=== PATIENT | male | born 1965 | race African-American/Black ===

== ENCOUNTER 2017-07-28 10:19 | Inpatient (IN) | payer OTHER ==
[~2017-07-28] VITALS: Ht 177.8 cm; Wt 83.0 kg
[2017-07-28 10:39] LABS: BASO # 0.1 x10^3/uL (0.0-0.2); BASO % 1 % (0-3); EOS % 1 % (0-3); HEMATOCRIT 40.9 % (39.0-53.0); HEMOGLOBIN 13.7 g/dL (13.0-17.5); LYMPH # 1.8 x10^3/uL (1.0-4.8); LYMPH % 19 % (24-48); MEAN CORPUSCULAR HEMOGLOBIN 29 pg (25-35); MEAN CORPUSCULAR HGB CONC 33 g/dL (31-37); MEAN CORPUSCULAR VOLUME 87 fL (79-100); MONO % 5 % (0-9); NEUT % 74 % (31-73); PLATELET COUNT 197 x10^3/uL (140-400); RED BLOOD COUNT 4.69 x10^6/uL (4.30-5.70); RED CELL DISTRIBUTION WIDTH 13.7 % (11.5-14.5); WHITE BLOOD COUNT 9.5 x10^3/uL (4.0-11.0)
[2017-07-28 10:50] LABS: ANION GAP 9 (6-14); BLOOD UREA NITROGEN 13 mg/dL (8-26); BUN/CREATININE RATIO 13 (6-20); CALCIUM 9.3 mg/dL (8.5-10.1); CARBON DIOXIDE 28 mmol/L (21-32); CHLORIDE 102 mmol/L (98-107); GFR 78.8; GLUCOSE 328 mg/dL (70-99); POTASSIUM 3.8 mmol/L (3.5-5.1); SODIUM 139 mmol/L (136-145)
--- NOTE | 2017-07-28 10:54 | RAD ---
Head CT without contrast History:Possible seizure, altered mental status Technique: Noncontrast CT imaging was acquired of the head. [facility] Compliance Statement: One or more of the following individualized dose reduction techniques were utilized for this examination: 1. Automated exposure control 2. Adjustment of the mA and/or kV according to patient size 3. Use of iterative reconstruction technique Comparison: None Findings: The ventricles, sulci, and cisterns are within normal limits in size and configuration. There is no significant mass-effect, midline shift, or abnormal extra-axial fluid collection. There is no evidence of acute parenchymal or extraaxial hemorrhage. The visualized paranasal sinuses and mastoid air cells are aerated. No significant osseous abnormality is identified. Impression: There is no evidence of an acute intracranial abnormality.
[2017-07-28 10:56] LABS: ALBUMIN 3.7 g/dL (3.4-5.0); ALBUMIN/GLOBULIN RATIO 0.9 (1.0-1.7); ALK PHOS 118 U/L (46-116); ALT (SGPT) 22 U/L (16-63); AST (SGOT) 16 U/L (15-37); TOTAL BILIRUBIN 0.2 mg/dL (0.2-1.0); TOTAL PROTEIN 7.8 g/dL (6.4-8.2)
[2017-07-28] MEDS ORDERED: LISI2.5T PO (10:58)
[2017-07-28] MEDS ORDERED: METF500T4 PO (10:58)
[2017-07-28] MEDS ORDERED: PHEN100C PO ×2 (10:58→14:46)
[2017-07-28] MEDS ORDERED: HYDR25CA PO (10:58)
[2017-07-28 11:16] LABS: BARBITURATES NEG (NEG); BENZODIAZEPINES NEG (NEG); CANNABINOIDS NEG (NEG); COCAINE NEG (NEG); METHADONE NEG (NEG); OPIATES NEG (NEG); PHENCYCLIDINE NEG (NEG)
[2017-07-28] MEDS ORDERED: FOSPHENYTOIN 1,000 MG in IV NORMAL SALINE 50ML 50 ML IV ONE (11:30)
[2017-07-28] MEDS ORDERED: IV NORMAL SALINE 1000ML BAG 1,000 ML IV ONE (11:30)
--- NOTE | 2017-07-28 13:13 | PHYS DOC ---
Past Medical History Past Medical History: Diabetes-Type II, Hypertension, Seizure, Stroke Past Surgical History: Other Additional Past Surgical Histo: unknown Alcohol Use: None Drug Use: None Social History Narrative: unknown Adult General Chief Complaint Chief Complaint: ALTERED MENTAL STATUS HPI HPI Patient is a 51 year old male brought by EMS from [facility]. The patient reportedly had a possible seizure, had altered mental status, which was noted this morning at about 9:00. Patient reportedly does have a history of seizures. His medication list includes Dilantin. The guards accompanying the patient do not know him. Nursing report was called but this is the extent of the information we had. EMS report that the patient's blood glucose was 301 prior to transport. EMS report that the patient had been nonverbal but making some noises in route. They weren't sure if he was having a seizure so they did not administer any medications. On arrival, patient is nonverbal. He was not able to contribute to a history. Med list reviewed and does include Dilantin, no other seizure medications. Review of Systems Review of Systems Patient is altered and nonverbal, unable to give review of systems Current Medications Current Medications Current Medications Medications (Trade) Dose Ordered Sig/Lainey Start Time Stop Time Status Last Admin Dose Admin Fosphenytoin Sodium 1000 mg/ Sodium Chloride 70 ml @ 280 mls/hr 1X ONCE 07/28/17 11:30 07/28/17 11:44 DC 07/28/17 11:59 280 MLS/HR Lorazepam (Ativan) 2 mg PRN Q4HRS PRN 07/28/17 10:30 Sodium Chloride 1,000 ml @ 1,000 mls/hr 1X ONCE 07/28/17 11:30 07/28/17 12:29 DC 07/28/17 11:55 1,000 MLS/HR Allergies Allergies Allergies Coded Allergies Type Severity Reaction Last Updated Verified Penicillins Allergy Unknown Unknown 07/28/17 Yes Physical Exam Physical Exam Constitutional: Well developed, well nourished, eyes are closed, head is turned to the right, he has some mostly tonic but slight tonic-clonic movements of the left upper extremity. He is breathing and maintaining his airway with sat in the 90s. He is not moving his lower extremities. HENT: Normocephalic, atraumatic, bilateral external ears normal, oropharynx moist, nose normal. [] Eyes: PERRLA, EOMI, conjunctiva normal, no discharge. His eyes are closed but can be opened with gentle traction. Neck: Normal range of motion, no stridor. [] Cardiovascular:Heart rate regular rhythm, no murmur [] Lungs & Thorax: Bilateral breath sounds clear to auscultation [] Abdomen: Bowel sounds normal, soft, no tenderness, no masses, no pulsatile masses. [] Skin: Warm, dry, no erythema, no rash. [] Extremities: No tenderness, no cyanosis, no clubbing, ROM intact, no edema. [] Neurologic: As described. He does have tone of the right arm, left arm is mostly tonic, no muscle tone or movement of the lower extremities. Current Patient Data Vital Signs Vital Signs Date Time Temp Pulse Resp B/P (MAP) Pulse Ox O2 Delivery O2 Flow Rate FiO2 07/28/17 12:53 82 98 07/28/17 10:19 100.0 22 178/94 (122) Room Air 100.0 Lab Values Laboratory Tests Test 07/28/17 10:30 07/28/17 10:32 07/28/17 10:51 White Blood Count 9.5 x10^3/uL (4.0-11.0) Red Blood Count 4.69 x10^6/uL (4.30-5.70) Hemoglobin 13.7 g/dL (13.0-17.5) Hematocrit 40.9 % (39.0-53.0) Mean Corpuscular Volume 87 fL (79-100) Mean Corpuscular Hemoglobin 29 pg (25-35) Mean Corpuscular Hemoglobin Concent 33 g/dL (31-37) Red Cell Distribution Width 13.7 % (11.5-14.5) Platelet Count 197 x10^3/uL (140-400) Neutrophils (%) (Auto) 74 % (31-73) H Lymphocytes (%) (Auto) 19 % (24-48) L Monocytes (%) (Auto) 5 % (0-9) Eosinophils (%) (Auto) 1 % (0-3) Basophils (%) (Auto) 1 % (0-3) Neutrophils # (Auto) 7.0 x10^3uL (1.8-7.7) Lymphocytes # (Auto) 1.8 x10^3/uL (1.0-4.8) Monocytes # (Auto) 0.5 x10^3/uL (0.0-1.1) Eosinophils # (Auto) 0.1 x10^3/uL (0.0-0.7) Basophils # (Auto) 0.1 x10^3/uL (0.0-0.2) Sodium Level 139 mmol/L (136-145) Potassium Level 3.8 mmol/L (3.5-5.1) Chloride Level 102 mmol/L (98-107) Carbon Dioxide Level 28 mmol/L (21-32) Anion Gap 9 (6-14) Blood Urea Nitrogen 13 mg/dL (8-26) Creatinine 1.0 mg/dL (0.7-1.3) Estimated GFR (Cockcroft-Gault) 78.8 BUN/Creatinine Ratio 13 (6-20) Glucose Level 328 mg/dL (70-99) H Lactic Acid Level 2.1 mmol/L (0.4-2.0) H Calcium Level 9.3 mg/dL (8.5-10.1) Total Bilirubin 0.2 mg/dL (0.2-1.0) Aspartate Amino Transferase (AST) 16 U/L (15-37) Alanine Aminotransferase (ALT) 22 U/L (16-63) Alkaline Phosphatase 118 U/L (46-116) H Total Protein 7.8 g/dL (6.4-8.2) Albumin 3.7 g/dL (3.4-5.0) Albumin/Globulin Ratio 0.9 (1.0-1.7) L Triglycerides Level 173 mg/dL (0-150) H Cholesterol Level 157 mg/dL (0-200) LDL Cholesterol, Calculated 76 mg/dL (0-100) VLDL Cholesterol, Calculated 35 mg/dL (0-40) Non-HDL Cholesterol Calculated 111 mg/dL (0-129) HDL Cholesterol 46 mg/dL (40-60) Cholesterol/HDL Ratio 3.4 Phenytoin (Dilantin) Level 1.3 mcg/mL (10.0-20.0) L Phenytoin Last Dose Date 07/28/17 Phenytoin Last Dose Time 0800 Glucose (Fingerstick) 293 mg/dL (70-99) H Urine Opiates Screen Neg (NEG) Urine Methadone Screen Neg (NEG) Urine Barbiturates Neg (NEG) Urine Phencyclidine Screen Neg (NEG) Urine Amphetamine/Methamphetamine Neg (NEG) Urine Benzodiazepines Screen Neg (NEG) Urine Cocaine Screen Neg (NEG) Urine Cannabinoids Screen Neg (NEG) Urine Ethyl Alcohol Neg (NEG) Laboratory Tests 07/28/17 10:30 Laboratory Tests 07/28/17 10:30 EKG EKG [] Radiology/Procedures Radiology/Procedures CT scan of the head read by the radiologist. No acute intracranial abnormality. No other abnormality noted.[] Course & Med Decision Making Course & Med Decision Making Pertinent Labs and Imaging studies reviewed. (See chart for details) 51-year-old male presents by EMS with essentially no history, unresponsive and possibly having seizure activity although maintaining his airway with normal oxygenation. I assessed him on arrival and I felt that his left upper extremity movement and some facial grimacing did appear to be likely seizure activity. The patient was given Ativan 2 mg IV. He had rapid resolution of his symptoms. Within 5-10 minutes, he did start to come around. His speech does exhibit some abnormality, possibly some expressive aphasia, unclear whether this is new or old, and it did seem to improve over a short time. Patient was able to tell me that he does have a history of seizures. As I did a neuro exam, the patient told me that his legs do not move and he is in a wheelchair because of that. He stated his legs both do not move due to a stroke. After patient cleared up some , he had no complaints. Labs relatively unremarkable although lactic is mildly elevated. CT scan unremarkable. Dilantin level subtherapeutic. I elected to give the patient a IV Dilantin load. Pt had another episode of what appeared to be seizure activity. [facility] guards called ED nursing staff into the room. I believe this occurred shortly after ED nursing staff was discussing with guards whether patient would be hospitalized or released back to the long-term. I went into the room to evaluate the patient. The patient's eyes were closed, he was having grimacing facial movements, and having rapid shaking-type tonic-clonic type movements of both upper extremities without movements of lower extremities. He was breathing without difficulty and pulse ox remained 100% during this episode. He was having some noisy breathing but was breathing throughout the entire event. I did order a second dose of IV Ativan but he for the ED RN was able to get a pulled up, the movements stopped. Within about 30 seconds, as I called the patient's name, he opened his eyes and seemed to be relatively alert. I did not note any postictal state. I don't believe that this particular event exhibited was a generalized seizure, but unclear whether it definitely was or was not. Patient will be hospitalized for recurrent seizure activity, altered mental status. We are unclear what the patient's baseline mental status and neurologic exam is. Also noted that his blood glucose is elevated. He does have a history of diabetes. This was treated in the emergency department with an IV bolus of normal saline. Although the patient status was initially called from [facility] and EMS as "possible stroke," I did not believe the patient exhibited a clearcut stroke pattern. On arrival, the patient's mental status alteration was significant. He did not have left sided hemiparesis, instead had increased tone in the form of tonic/clonic type activity. Patient appeared to be having seizure activity rather than stroke syndrome. Patient had rapid improvement after treatment of seizure type activity. I do not have a baseline for the patient. When he woke up he told me he has a history of bilateral legs not working which is not consistent with a previous stroke or current stroke. I did not feel that the patient exhibited stroke symptomatology and did not feel that his presentation was likely a stroke and therefore consideration was not given to TPA after taking all this into account. I discussed the patient with Dr. [facility]. He will admit the patient. I wrote bridge orders. The patient remained stable and free of any further seizure or seizure-like activity in the emergency department. Critical care time 45 minutes including initial evaluation of the patient on arrival, reevaluation of the patient, treatment of possible seizure or seizure- like activity, ordering IV seizure medications, evaluation of labs, CT scan, discussion of patient with hospital specialist, documentation, writing bridge orders. [] Dragon Disclaimer Dragon Disclaimer This electronic medical record was generated, in whole or in part, using a voice recognition dictation system. Departure Departure Impression: Primary Impression: Seizure Additional Impressions: Seizure-like activity Altered mental status Disposition: 09 ADMITTED INPATIENT Admitting Physician: Alejandrina Coley Condition: STABLE Referrals: NO PCP (PCP) Problem Qualifiers LUIS LOPEZ MD Jul 28, 2017 13:13
--- NOTE | 2017-07-28 14:09 | EKG ---
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
--- NOTE | 2017-07-28 14:26 | HP ---
ADMIT DATE: 07/28/2017 CHIEF COMPLAINT: Seizure. HISTORY OF PRESENT ILLNESS: The patient is a pleasant 51-year-old male with known seizure disorder. He has also had a previous stroke, basically presents with a seizure activity. I have discussed the case with ER physician. We have loaded with 1 gram of IV fosphenytoin. We are going to admit the patient and consult Neurology. PAST MEDICAL HISTORY: Previous seizures, previous stroke with left-sided weakness. ALLERGIES: None. FAMILY HISTORY: Diabetes. SOCIAL HISTORY: Does not drink, smoke or take drugs MEDICATIONS: Reviewed. REVIEW OF SYSTEMS: Unobtainable, the patient is seizing. PHYSICAL EXAMINATION: VITAL SIGNS: Temperature afebrile, pulse 98, respirations 18, blood pressure 144/60. GENERAL: He is sleeping. He keeps having twitching in his left hand. HEART: Normal S1, S2. LUNGS: Clear. ABDOMEN: Soft. EXTREMITIES: No edema. ENDOCRINE: No thyromegaly. LYMPHATICS: No cervical nodes. HEMATOPOIETIC: No bruising. ASSESSMENT AND PLAN: Seizure, acute on chronic seizures. The patient has been admitted. We are consulting Neurology. We loaded with IV fosphenytoin, p.r.n. benzos for breakthrough seizures. Continue other home medicines. PROGNOSIS: Guarded. LILIA RICCI DO DR: TYRELL/jackelyn JOB#: [id number] / [id number]
[2017-07-28] MEDS ORDERED: RISP0.5T3 PO (14:46)
[2017-07-28] MEDS ORDERED: HYDR50CA PO ×2 (14:46)
[2017-07-28] MEDS ORDERED: INSU100V5 IJ (14:46)
[2017-07-28] MEDS ORDERED: METF-620 PO (14:46)
[2017-07-28] MEDS ORDERED: LISI-334 PO (14:46)
[2017-07-28] MEDS ORDERED: NPH,100V5 SQ (14:56)
[2017-07-28 15:00] VITALS: BP 160/94
[2017-07-28] MEDS: ASPIRIN 325 MG TABLET PO SCH (15:50)
--- NOTE | 2017-07-28 15:51 | PDOC2 ---
CONSULT Date of Consult Date of Consult DATE: 07/28/17 TIME: 15:46 Reason for Consult Reason for Consult: seizures. Identification/Chief Complaint Chief Complaint seizures. History of Present Illness Reason for Visit: This patient is 51-year-old man who has past medical history of stroke with left -sided weakness, history of seizures. Patient has been maintained on Dilantin. Patient woke up this morning he was having some weakness, had a episode of seizure like activity. He uses wheelchair as ambulation information. Patient to have subtherapeutic Dilantin level patient was loaded with loading dose also. We will continue Dilantin at home dose. He had a CT scan done on the brain which did not show any evidence of acute intracranial abnormality that is no acute hemorrhage. History of stroke with left-sided weakness. History of seizures on Dilantin. We will get MRI brain to rule out any acute process. Family History Family History unk Current Problem List Problem List Problems Medical Problems: (1) Altered mental status Status: Acute (2) Seizure Status: Acute (3) Seizure-like activity Status: Acute Current Medications Current Medications Current Medications Lorazepam (Ativan) 2 mg 1X ONCE IV Last administered on 07/28/17 10:32; Start 07/28/17 at 10:30; Stop 07/28/17 at 10:37; Status DC Lorazepam (Ativan) 2 mg PRN Q4HRS PRN IV ANXIETY / AGITATION; Start 07/28/17 at 10:30 Sodium Chloride 1,000 ml @ 1,000 mls/hr 1X ONCE IV Last administered on 07/28 11:55; Start 07/28/17 at 11:30; Stop 07/28/17 at 12:29; Status DC Fosphenytoin Sodium 1000 mg/ Sodium Chloride 70 ml @ 280 mls/hr 1X ONCE IV Last administered on 07/28/17 11:59; Start 07/28/17 at 11:30; Stop 07/28/17 at 11:44; Status DC Aspirin (Domonique Aspirin) 325 mg DAILYWBKFT PO ; Start 07/28/17 at 16:00 Atorvastatin Calcium (Lipitor) 20 mg QHS PO ; Start 07/28/17 at 21:00 Active Scripts Active Reported Novolin N (Nph, Human Insulin Isophane) 100 Unit/1 Ml Vial 1 Unit SQ Risperidone 0.5 Mg Tablet 1 Tab PO QHS Metformin Hcl 1,000 Mg Tablet 1,000 Mg PO BIDWMEALS Dilantin (Phenytoin Sodium Extended) 100 Mg Capsule 100 Mg PO TID Vistaril (Hydroxyzine Pamoate) 50 Mg Capsule 1 Cap PO DAILY Humulin R (Insulin Regular, Human) 100 Unit/1 Ml Vial 100 Unit IJ Vistaril (Hydroxyzine Pamoate) 50 Mg Capsule 1 Cap PO TID Lisinopril 20 Mg Tablet 1 Tab PO DAILY Allergies Allergies: Coded Allergies: Penicillins (Verified Allergy, Unknown, Unknown, 07/28/17) Physical Exam Physical Exam REVIEW OF SYSTEMS: Limited Otherwise, not [id number] review of systems. PHYSICAL EXAMINATION: General appearance is no acute distress. HEENT: Normocephalic and nontraumatic. Eyes, nose, ears, and throat are unremarkable. Neck is supple. No lymphadenopathy. No crepitus. Cardiovascular: S1, S2, regular rate and rhythm. Pulmonary: Clear to auscultation bilaterally. Abdomen: Bowel sounds are positive. Abdomen is soft, nontender, and nondistended. NEUROLOGICAL EXAMINATION: Alert sleepy able to follow some simple commands PERRL. EOMI. CN: no focal findings.+ Facial asy Muscle tone: within normal. Muscle strength: able to move all ext more on right than left DTR: 1+ Plantar reflex: Flexor response bilaterally Gait: not examined in bed. Sensory exam: not able. not able cerebellar signs Vitals VITALS Vital Signs Date Time Temp Pulse Resp B/P (MAP) Pulse Ox O2 Delivery O2 Flow Rate FiO2 07/28/17 13:55 78 99 07/28/17 10:19 100.0 22 178/94 (122) Room Air 100.0 Labs Labs Laboratory Tests Test 07/28/17 10:30 07/28/17 10:32 07/28/17 10:51 07/28/17 15:04 White Blood Count 9.5 x10^3/uL (4.0-11.0) Red Blood Count 4.69 x10^6/uL (4.30-5.70) Hemoglobin 13.7 g/dL (13.0-17.5) Hematocrit 40.9 % (39.0-53.0) Mean Corpuscular Volume 87 fL (79-100) Mean Corpuscular Hemoglobin 29 pg (25-35) Mean Corpuscular Hemoglobin Concent 33 g/dL (31-37) Red Cell Distribution Width 13.7 % (11.5-14.5) Platelet Count 197 x10^3/uL (140-400) Neutrophils (%) (Auto) 74 % (31-73) Lymphocytes (%) (Auto) 19 % (24-48) Monocytes (%) (Auto) 5 % (0-9) Eosinophils (%) (Auto) 1 % (0-3) Basophils (%) (Auto) 1 % (0-3) Neutrophils # (Auto) 7.0 x10^3uL (1.8-7.7) Lymphocytes # (Auto) 1.8 x10^3/uL (1.0-4.8) Monocytes # (Auto) 0.5 x10^3/uL (0.0-1.1) Eosinophils # (Auto) 0.1 x10^3/uL (0.0-0.7) Basophils # (Auto) 0.1 x10^3/uL (0.0-0.2) Sodium Level 139 mmol/L (136-145) Potassium Level 3.8 mmol/L (3.5-5.1) Chloride Level 102 mmol/L (98-107) Carbon Dioxide Level 28 mmol/L (21-32) Anion Gap 9 (6-14) Blood Urea Nitrogen 13 mg/dL (8-26) Creatinine 1.0 mg/dL (0.7-1.3) Estimated GFR (Cockcroft-Gault) 78.8 BUN/Creatinine Ratio 13 (6-20) Glucose Level 328 mg/dL (70-99) Lactic Acid Level 2.1 mmol/L (0.4-2.0) Calcium Level 9.3 mg/dL (8.5-10.1) Total Bilirubin 0.2 mg/dL (0.2-1.0) Aspartate Amino Transf (AST/SGOT) 16 U/L (15-37) Alanine Aminotransferase (ALT/SGPT) 22 U/L (16-63) Alkaline Phosphatase 118 U/L (46-116) Total Protein 7.8 g/dL (6.4-8.2) Albumin 3.7 g/dL (3.4-5.0) Albumin/Globulin Ratio 0.9 (1.0-1.7) Phenytoin (Dilantin) Level 1.3 mcg/mL (10.0-20.0) Phenytoin Last Dose Date 07/28/17 Phenytoin Last Dose Time 0800 Glucose (Fingerstick) 293 mg/dL (70-99) 226 mg/dL (70-99) Urine Opiates Screen Neg (NEG) Urine Methadone Screen Neg (NEG) Urine Barbiturates Neg (NEG) Urine Phencyclidine Screen Neg (NEG) Urine Amphetamine/Methamphetamine Neg (NEG) Urine Benzodiazepines Screen Neg (NEG) Urine Cocaine Screen Neg (NEG) Urine Cannabinoids Screen Neg (NEG) Urine Ethyl Alcohol Neg (NEG) Laboratory Tests Test 07/28/17 10:30 07/28/17 10:32 07/28/17 10:51 07/28/17 15:04 White Blood Count 9.5 x10^3/uL (4.0-11.0) Red Blood Count 4.69 x10^6/uL (4.30-5.70) Hemoglobin 13.7 g/dL (13.0-17.5) Hematocrit 40.9 % (39.0-53.0) Mean Corpuscular Volume 87 fL (79-100) Mean Corpuscular Hemoglobin 29 pg (25-35) Mean Corpuscular Hemoglobin Concent 33 g/dL (31-37) Red Cell Distribution Width 13.7 % (11.5-14.5) Platelet Count 197 x10^3/uL (140-400) Neutrophils (%) (Auto) 74 % (31-73) Lymphocytes (%) (Auto) 19 % (24-48) Monocytes (%) (Auto) 5 % (0-9) Eosinophils (%) (Auto) 1 % (0-3) Basophils (%) (Auto) 1 % (0-3) Neutrophils # (Auto) 7.0 x10^3uL (1.8-7.7) Lymphocytes # (Auto) 1.8 x10^3/uL (1.0-4.8) Monocytes # (Auto) 0.5 x10^3/uL (0.0-1.1) Eosinophils # (Auto) 0.1 x10^3/uL (0.0-0.7) Basophils # (Auto) 0.1 x10^3/uL (0.0-0.2) Sodium Level 139 mmol/L (136-145) Potassium Level 3.8 mmol/L (3.5-5.1) Chloride Level 102 mmol/L (98-107) Carbon Dioxide Level 28 mmol/L (21-32) Anion Gap 9 (6-14) Blood Urea Nitrogen 13 mg/dL (8-26) Creatinine 1.0 mg/dL (0.7-1.3) Estimated GFR (Cockcroft-Gault) 78.8 BUN/Creatinine Ratio 13 (6-20) Glucose Level 328 mg/dL (70-99) Lactic Acid Level 2.1 mmol/L (0.4-2.0) Calcium Level 9.3 mg/dL (8.5-10.1) Total Bilirubin 0.2 mg/dL (0.2-1.0) Aspartate Amino Transf (AST/SGOT) 16 U/L (15-37) Alanine Aminotransferase (ALT/SGPT) 22 U/L (16-63) Alkaline Phosphatase 118 U/L (46-116) Total Protein 7.8 g/dL (6.4-8.2) Albumin 3.7 g/dL (3.4-5.0) Albumin/Globulin Ratio 0.9 (1.0-1.7) Phenytoin (Dilantin) Level 1.3 mcg/mL (10.0-20.0) Phenytoin Last Dose Date 07/28/17 Phenytoin Last Dose Time 0800 Glucose (Fingerstick) 293 mg/dL (70-99) 226 mg/dL (70-99) Urine Opiates Screen Neg (NEG) Urine Methadone Screen Neg (NEG) Urine Barbiturates Neg (NEG) Urine Phencyclidine Screen Neg (NEG) Urine Amphetamine/Methamphetamine Neg (NEG) Urine Benzodiazepines Screen Neg (NEG) Urine Cocaine Screen Neg (NEG) Urine Cannabinoids Screen Neg (NEG) Urine Ethyl Alcohol Neg (NEG) Assessment/Plan Assessment/Plan This patient is 51-year-old man who has past medical history of stroke with left -sided weakness, history of seizures. Patient has been maintained on Dilantin. Patient woke up this morning he was having some weakness, had a episode of seizure like activity. He uses wheelchair as ambulation information. Patient to have subtherapeutic Dilantin level patient was loaded with loading dose also. We will continue Dilantin at home dose. He had a CT scan done on the brain which did not show any evidence of acute intracranial abnormality that is no acute hemorrhage. History of stroke with left-sided weakness. History of seizures on Dilantin. We will get MRI brain to rule out any acute process. He had a CT scan done on the brain which did not show any evidence of acute intracranial abnormality there was no acute hemorrhage. We'll start patient on aspirin for stroke prevention. Lipid profile, statin PTOT speech evaluation Check K Doppler. Check 2-D echo. Check for any infectious or metabolic etiology. Seizure precautions. Continue medical management. MARYJO MOYA MD Jul 28, 2017 15:51
[2017-07-28 15:58] LABS: CHOLESTEROL/HDL RATIO 3.4
--- NOTE | 2017-07-28 16:33 | RAD ---
Carotid Doppler ultrasound History: Seizures versus CVA. Multiple grayscale and color sonographic images and spectral analysis waveform images were acquired of the carotid and vertebral arteries. Findings: Stenosis calculations for carotid ultrasound studies are derived from validated velocity criteria which are known to correlate with the NASCET methodology. Right: Distal CCA PSV 69 cm/sec EDV 18 cm/sec Maximum ICA PSV 59 cm/sec EDV 16 cm/sec ECA PSV 80 cm/sec Vertebral PSV 40 cm/sec ICA/CCA ratio less than 1 Left: Distal CCA PSV 80 cm/sec EDV 18 cm/sec Maximal ICA PSV 58 cm/sec EDV 11 cm/sec ECA PSV 76 cm/sec Vertebral PSV 35 cm/sec ICA/CCA ratio less than 1 There is antegrade flow in the bilateral vertebral arteries. There is very minimal intimal thickening and plaque, no significant stenosis demonstrated on grayscale or color images.. Impression: 1. There is no evidence of a hemodynamically significant stenosis..
[2017-07-28] MEDS ORDERED: GADOBUTROL 7.5 MMOL/7.5 ML VIAL IV ONE (16:45)
[2017-07-28] MEDS ORDERED: DEXTROSE 50% 25 GM / 50ML DISP.SYRIN. IV PRN (17:00)
[2017-07-28] MEDS ORDERED: INSULIN ASPART 300 UNITS/3 ML INSULN.PEN SQ SCH (17:00)
--- NOTE | 2017-07-28 17:39 | RAD ---
EXAM: Brain MRI with and without contrast. HISTORY: Seizures. TECHNIQUE: Multiplanar, multisequence magnetic resonance imaging of the brain was performed prior to and following the administration of 8 cc Gadavist intravenous contrast. COMPARISON: Head CT obtained on the same date. FINDINGS: The exam is limited due to motion. There is no restricted diffusion to suggest acute or subacute infarction. There is no mass effect or midline shift. There is no hydrocephalus. There are scattered focal areas of signal change within the cerebral white matter, a nonspecific finding likely due to chronic small vessel disease. The orbits, paranasal sinuses and mastoid air cells are unremarkable. There are normal flow voids within the cerebral vessels. No suspicious enhancing lesion is seen. There is no susceptibility effect to suggest hemorrhage. IMPRESSION: 1. No acute intracranial finding. 2. Scattered focal areas of signal change within the cerebral white matter, a nonspecific finding likely due to chronic small vessel disease. Electronically signed by: Valerie Macias MD (07/28/2017 5:35 PM) [id number]
[2017-07-28 19:00] VITALS: BP 157/101
[2017-07-28 20:37] VITALS: BP 156/94
[2017-07-28] MEDS: risperiDONE 0.25 MG TABLET. PO SCH (20:38)
[2017-07-28] MEDS: PHENYTOIN SODIUM EXTENDED 100 MG CAPSULE PO SCH (20:38)
[2017-07-28] MEDS: ATORVASTATIN CALCIUM 20 MG TABLET PO SCH (20:38)
[2017-07-28] MEDS: oxyCODONE/APAP 5/325 1 TAB TABLET PO PRN (21:22)
[2017-07-28] MEDS: amLODIPine BESYLATE 5 MG TABLET PO SCH (21:22)
[2017-07-28 23:00] VITALS: BP 155/88
[2017-07-28] MEDS: INSULIN ASPART 300 UNITS/3 ML INSULN.PEN SQ SCH (23:07)
[2017-07-29 03:26] VITALS: BP 134/79
[2017-07-29 07:00] VITALS: BP 139/84
[2017-07-29] MEDS: INSULIN ASPART 300 UNITS/3 ML INSULN.PEN SQ SCH ×4 (07:30→16:49)
[2017-07-29] MEDS ORDERED: DEXTROSE 50% 25 GM / 50ML DISP.SYRIN. IV PRN (08:00)
[2017-07-29] MEDS ORDERED: ACETAMINOPHEN 500 MG TABLET PO PRN (08:00)
[2017-07-29] MEDS ORDERED: ONDANSETRON PF 4 MG/2 ML VIAL. IV PRN (08:00)
[2017-07-29] MEDS: ASPIRIN 325 MG TABLET PO SCH (08:07)
[2017-07-29] MEDS: amLODIPine BESYLATE 5 MG TABLET PO SCH (09:35)
[2017-07-29] MEDS: LISINOPRIL 20 MG TABLET PO SCH (09:35)
[2017-07-29] MEDS: hydrOXYzine PAMOATE 25 MG CAPSULE PO SCH (09:35)
[2017-07-29] MEDS: PHENYTOIN SODIUM EXTENDED 100 MG CAPSULE PO SCH (09:36)
--- NOTE | 2017-07-29 09:55 | PDOC ---
PROGRESS NOTES Assessment Problems Medical Problems: (1) Altered mental status Status: Acute (2) Seizure Status: Acute (3) Seizure-like activity Status: Acute Epilepsy Sub therapeutic phenytoin level History of stroke with left hemiparesis Plan Change phenytoin to 300 mg HS rather than TID Check level tomorrow, and I also suggest rechecking at senior living a week or 2 from now. Discharged tomorrow if he remains seizure-free overnight. Hold off on repeating his EEG or adding a 2nd anticonvulsant, unless he continues to have breakthrough seizures with therapeutic level. Subjective He thinks he had a seizure about 3 AM the day. Objective Vital Signs Date Time Temp Pulse Resp B/P (MAP) Pulse Ox O2 Delivery O2 Flow Rate FiO2 07/29/17 09:35 78 139/84 07/29/17 07:00 98.2 20 98 Room Air 98.2 Intake and Output 07/29/17 07:00 Intake Total 1470 ml Output Total 1000 ml Balance 470 ml Intake Oral 400 ml IV Total 1070 ml Output Urine Total 1000 ml # Voids 1 PHYSICAL EXAM Alert. Oriented to time, place and person. PERRL. EOMI. CN: Mild left central facial weakness, otherwise normal cranial nerves. Muscle tone: normal. Muscle strength: 4/5 left hemiparesis DTR: 2+ Plantar reflex: flexor Gait: not examined in bed. Sensory exam: no abnormal findings. No cerebellar signs elicited. Review of Relevant I have reviewed the following items marly (where applicable) has been applied. Labs Laboratory Tests Test 07/28/17 10:30 07/28/17 10:32 07/28/17 10:51 07/28/17 15:04 White Blood Count 9.5 x10^3/uL (4.0-11.0) Red Blood Count 4.69 x10^6/uL (4.30-5.70) Hemoglobin 13.7 g/dL (13.0-17.5) Hematocrit 40.9 % (39.0-53.0) Mean Corpuscular Volume 87 fL (79-100) Mean Corpuscular Hemoglobin 29 pg (25-35) Mean Corpuscular Hemoglobin Concent 33 g/dL (31-37) Red Cell Distribution Width 13.7 % (11.5-14.5) Platelet Count 197 x10^3/uL (140-400) Neutrophils (%) (Auto) 74 % (31-73) Lymphocytes (%) (Auto) 19 % (24-48) Monocytes (%) (Auto) 5 % (0-9) Eosinophils (%) (Auto) 1 % (0-3) Basophils (%) (Auto) 1 % (0-3) Neutrophils # (Auto) 7.0 x10^3uL (1.8-7.7) Lymphocytes # (Auto) 1.8 x10^3/uL (1.0-4.8) Monocytes # (Auto) 0.5 x10^3/uL (0.0-1.1) Eosinophils # (Auto) 0.1 x10^3/uL (0.0-0.7) Basophils # (Auto) 0.1 x10^3/uL (0.0-0.2) Sodium Level 139 mmol/L (136-145) Potassium Level 3.8 mmol/L (3.5-5.1) Chloride Level 102 mmol/L (98-107) Carbon Dioxide Level 28 mmol/L (21-32) Anion Gap 9 (6-14) Blood Urea Nitrogen 13 mg/dL (8-26) Creatinine 1.0 mg/dL (0.7-1.3) Estimated GFR (Cockcroft-Gault) 78.8 BUN/Creatinine Ratio 13 (6-20) Glucose Level 328 mg/dL (70-99) Lactic Acid Level 2.1 mmol/L (0.4-2.0) Calcium Level 9.3 mg/dL (8.5-10.1) Total Bilirubin 0.2 mg/dL (0.2-1.0) Aspartate Amino Transf (AST/SGOT) 16 U/L (15-37) Alanine Aminotransferase (ALT/SGPT) 22 U/L (16-63) Alkaline Phosphatase 118 U/L (46-116) Total Protein 7.8 g/dL (6.4-8.2) Albumin 3.7 g/dL (3.4-5.0) Albumin/Globulin Ratio 0.9 (1.0-1.7) Triglycerides Level 173 mg/dL (0-150) Cholesterol Level 157 mg/dL (0-200) LDL Cholesterol, Calculated 76 mg/dL (0-100) VLDL Cholesterol, Calculated 35 mg/dL (0-40) Non-HDL Cholesterol Calculated 111 mg/dL (0-129) HDL Cholesterol 46 mg/dL (40-60) Cholesterol/HDL Ratio 3.4 Phenytoin (Dilantin) Level 1.3 mcg/mL (10.0-20.0) Phenytoin Last Dose Date 07/28/17 Phenytoin Last Dose Time 0800 Glucose (Fingerstick) 293 mg/dL (70-99) 226 mg/dL (70-99) Urine Opiates Screen Neg (NEG) Urine Methadone Screen Neg (NEG) Urine Barbiturates Neg (NEG) Urine Phencyclidine Screen Neg (NEG) Urine Amphetamine/Methamphetamine Neg (NEG) Urine Benzodiazepines Screen Neg (NEG) Urine Cocaine Screen Neg (NEG) Urine Cannabinoids Screen Neg (NEG) Urine Ethyl Alcohol Neg (NEG) Test 07/28/17 17:50 07/28/17 20:27 07/29/17 03:14 07/29/17 07:32 Lactic Acid Level 0.8 mmol/L (0.4-2.0) Glucose (Fingerstick) 243 mg/dL (70-99) 232 mg/dL (70-99) 198 mg/dL (70-99) Laboratory Tests Test 07/28/17 10:30 07/28/17 10:32 07/28/17 10:51 07/28/17 15:04 White Blood Count 9.5 x10^3/uL (4.0-11.0) Red Blood Count 4.69 x10^6/uL (4.30-5.70) Hemoglobin 13.7 g/dL (13.0-17.5) Hematocrit 40.9 % (39.0-53.0) Mean Corpuscular Volume 87 fL (79-100) Mean Corpuscular Hemoglobin 29 pg (25-35) Mean Corpuscular Hemoglobin Concent 33 g/dL (31-37) Red Cell Distribution Width 13.7 % (11.5-14.5) Platelet Count 197 x10^3/uL (140-400) Neutrophils (%) (Auto) 74 % (31-73) Lymphocytes (%) (Auto) 19 % (24-48) Monocytes (%) (Auto) 5 % (0-9) Eosinophils (%) (Auto) 1 % (0-3) Basophils (%) (Auto) 1 % (0-3) Neutrophils # (Auto) 7.0 x10^3uL (1.8-7.7) Lymphocytes # (Auto) 1.8 x10^3/uL (1.0-4.8) Monocytes # (Auto) 0.5 x10^3/uL (0.0-1.1) Eosinophils # (Auto) 0.1 x10^3/uL (0.0-0.7) Basophils # (Auto) 0.1 x10^3/uL (0.0-0.2) Sodium Level 139 mmol/L (136-145) Potassium Level 3.8 mmol/L (3.5-5.1) Chloride Level 102 mmol/L (98-107) Carbon Dioxide Level 28 mmol/L (21-32) Anion Gap 9 (6-14) Blood Urea Nitrogen 13 mg/dL (8-26) Creatinine 1.0 mg/dL (0.7-1.3) Estimated GFR (Cockcroft-Gault) 78.8 BUN/Creatinine Ratio 13 (6-20) Glucose Level 328 mg/dL (70-99) Lactic Acid Level 2.1 mmol/L (0.4-2.0) Calcium Level 9.3 mg/dL (8.5-10.1) Total Bilirubin 0.2 mg/dL (0.2-1.0) Aspartate Amino Transf (AST/SGOT) 16 U/L (15-37) Alanine Aminotransferase (ALT/SGPT) 22 U/L (16-63) Alkaline Phosphatase 118 U/L (46-116) Total Protein 7.8 g/dL (6.4-8.2) Albumin 3.7 g/dL (3.4-5.0) Albumin/Globulin Ratio 0.9 (1.0-1.7) Triglycerides Level 173 mg/dL (0-150) Cholesterol Level 157 mg/dL (0-200) LDL Cholesterol, Calculated 76 mg/dL (0-100) VLDL Cholesterol, Calculated 35 mg/dL (0-40) Non-HDL Cholesterol Calculated 111 mg/dL (0-129) HDL Cholesterol 46 mg/dL (40-60) Cholesterol/HDL Ratio 3.4 Phenytoin (Dilantin) Level 1.3 mcg/mL (10.0-20.0) Phenytoin Last Dose Date 07/28/17 Phenytoin Last Dose Time 0800 Glucose (Fingerstick) 293 mg/dL (70-99) 226 mg/dL (70-99) Urine Opiates Screen Neg (NEG) Urine Methadone Screen Neg (NEG) Urine Barbiturates Neg (NEG) Urine Phencyclidine Screen Neg (NEG) Urine Amphetamine/Methamphetamine Neg (NEG) Urine Benzodiazepines Screen Neg (NEG) Urine Cocaine Screen Neg (NEG) Urine Cannabinoids Screen Neg (NEG) Urine Ethyl Alcohol Neg (NEG) Test 07/28/17 17:50 07/28/17 20:27 07/29/17 03:14 07/29/17 07:32 Lactic Acid Level 0.8 mmol/L (0.4-2.0) Glucose (Fingerstick) 243 mg/dL (70-99) 232 mg/dL (70-99) 198 mg/dL (70-99) Medications Current Medications Lorazepam (Ativan) 2 mg 1X ONCE IV Last administered on 07/28/17 10:32; Start 07/28/17 at 10:30; Stop 07/28/17 at 10:37; Status DC Lorazepam (Ativan) 2 mg PRN Q4HRS PRN IV ANXIETY / AGITATION Last administered on 07/29/17 03:11; Start 07/28/17 at 10:30 Sodium Chloride 1,000 ml @ 1,000 mls/hr 1X ONCE IV Last administered on 07/28 11:55; Start 07/28/17 at 11:30; Stop 07/28/17 at 12:29; Status DC Fosphenytoin Sodium 1000 mg/ Sodium Chloride 70 ml @ 280 mls/hr 1X ONCE IV Last administered on 07/28/17 11:59; Start 07/28/17 at 11:30; Stop 07/28/17 at 11:44; Status DC Aspirin (Domonique Aspirin) 325 mg DAILYWBKFT PO Last administered on 07/29/17 08 :07; Start 07/28/17 at 16:00 Atorvastatin Calcium (Lipitor) 20 mg QHS PO Last administered on 07/28/17 20: 38; Start 07/28/17 at 21:00 Gadobutrol (Gadavist) 7.5 mmol 1X ONCE IV Last administered on 07/28/17 16: 45; Start 07/28/17 at 16:45; Stop 07/28/17 at 16:46; Status DC Lisinopril (Prinivil) 20 mg DAILY PO Last administered on 07/29/17 09:35; Start 07/29/17 at 09:00 Metformin HCl (Glucophage) 1,000 mg BIDWMEALS PO Last administered on 08:07; Start 07/28/17 at 17:00 Phenytoin Sodium (Dilantin) 100 mg TID PO Last administered on 07/29/17 09:36 ; Start 07/28/17 at 21:00 Hydroxyzine Pamoate (Vistaril) 50 mg DAILY PO Last administered on 07/29/17 09:35; Start 07/29/17 at 09:00 Risperidone (RisperDAL) 0.5 mg QHS PO Last administered on 07/28/17 20:38; Start 07/28/17 at 21:00 Insulin Aspart (NovoLOG) 0-7 UNITS TIDWMEALS SQ Last administered on 17:48; Start 07/28/17 at 17:00; Stop 07/28/17 at 22:58; Status DC Dextrose (Dextrose 50%-Water Syringe) 12.5 gm PRN Q15MIN PRN IV SEE COMMENTS; Start 07/28/17 at 17:00; Status Cancel Oxycodone/ Acetaminophen (Percocet 5/325) 1 tab PRN Q6HRS PRN PO PAIN Last administered on 07/28/17 21:22; Start 07/28/17 at 21:00 Amlodipine Besylate (Norvasc) 5 mg DAILY PO Last administered on 07/29/17 09: 35; Start 07/28/17 at 21:00 Insulin Aspart (NovoLOG) 0-7 UNITS QIDACHS SQ Last administered on 07/28/17 23:07; Start 07/28/17 at 23:00; Stop 07/29/17 at 07:50; Status DC Insulin Aspart (NovoLOG) 0-9 UNITS TIDWMEALS SQ Last administered on 08:15; Start 07/29/17 at 08:00 Dextrose (Dextrose 50%-Water Syringe) 12.5 gm PRN Q15MIN PRN IV SEE COMMENTS; Start 07/29/17 at 08:00 Acetaminophen (Tylenol) 500 mg PRN Q6HRS PRN PO MILD PAIN / TEMP; Start at 08:00 Ondansetron HCl (Zofran) 4 mg PRN Q6HRS PRN IV NAUSEA/VOMITING; Start at 08:00 Active Scripts Active Reported Novolin N (Nph, Human Insulin Isophane) 100 Unit/1 Ml Vial 1 Unit SQ Risperidone 0.5 Mg Tablet 1 Tab PO QHS Metformin Hcl 1,000 Mg Tablet 1,000 Mg PO BIDWMEALS Dilantin (Phenytoin Sodium Extended) 100 Mg Capsule 100 Mg PO TID Vistaril (Hydroxyzine Pamoate) 50 Mg Capsule 1 Cap PO DAILY Humulin R (Insulin Regular, Human) 100 Unit/1 Ml Vial 100 Unit IJ Vistaril (Hydroxyzine Pamoate) 50 Mg Capsule 1 Cap PO TID Lisinopril 20 Mg Tablet 1 Tab PO DAILY Vitals/I & O Vital Sign - Last 24 Hours 07/28/17 07/28/17 07/28/17 07/28/17 10:19 10:32 10:38 10:53 Temp 100.0 100.0 Pulse 99 90 88 80 Resp 22 B/P (MAP) 178/94 (122) Pulse Ox 98 97 97 98 O2 Delivery Room Air 07/28/17 07/28/17 07/28/17 07/28/17 11:08 11:23 11:38 11:53 Pulse 84 74 80 80 Pulse Ox 98 98 98 99 07/28/17 07/28/17 07/28/17 07/28/17 12:23 12:53 13:23 13:25 Pulse 82 82 86 80 Pulse Ox 99 98 99 99 07/28/17 07/28/17 07/28/17 07/28/17 13:30 13:35 13:40 13:45 Pulse 80 86 76 80 Pulse Ox 99 98 100 100 07/28/17 07/28/17 07/28/17 07/28/17 13:50 13:55 15:00 19:00 Temp 97.7 98.4 97.7 98.4 Pulse 72 78 84 86 Resp 20 20 B/P (MAP) 160/94 (116) 157/101 (119) Pulse Ox 100 99 97 97 O2 Delivery Room Air Room Air 07/28/17 07/28/17 07/28/1707/28/17 20:37 20:40 21:22 21:22 Pulse 86 Resp 20 B/P (MAP) 156/94 (114) 156/84 O2 Delivery Room Air Room Air 07/28/17 07/28/17 07/29/17 07/29/17 22:25 23:00 03:26 07:00 Temp 98.3 98.4 98.2 98.3 98.4 98.2 Pulse 83 87 78 Resp 20 20 20 20 B/P (MAP) 155/88 (110) 134/79 (97) 139/84 (102) Pulse Ox 96 96 98 O2 Delivery Room Air Room Air Nasal Cannula Room Air 07/29/17 07/29/17 09:35 09:35 Pulse 78 78 B/P (MAP) 139/84 139/84 Intake and Output 07/28/17 07/28/17 07/29/17 15:00 23:00 07:00 Intake Total 1070 ml 400 ml Output Total 1000 ml Balance 70 ml 400 ml Images Brain MRI: FINDINGS: The exam is limited due to motion. There is no restricted diffusion to suggest acute or subacute infarction. There is no mass effect or midline shift. There is no hydrocephalus. There are scattered focal areas of signal change within the cerebral white matter, a nonspecific finding likely due to chronic small vessel disease. The orbits, paranasal sinuses and mastoid air cells are unremarkable. There are normal flow voids within the cerebral vessels. No suspicious enhancing lesion is seen. There is no susceptibility effect to suggest hemorrhage. IMPRESSION: 1. No acute intracranial finding. 2. Scattered focal areas of signal change within the cerebral white matter, a nonspecific finding likely due to chronic small vessel disease. TWAN WILEY MD Jul 29, 2017 09:55
--- NOTE | 2017-07-29 10:36 | CARD ---
APPROVED REPORT EXAM: Two-dimensional and M-mode echocardiogram with Doppler and color Doppler. Other Information Quality : Good INDICATION CVA/TIA Echo Enhancing Agent Agent/Amount Used: Agitated Saline 8mL 2D DIMENSIONS RVDd2.2 (2.9-3.5cm)Left Atrium(2D)3.8 (1.6-4.0cm) IVSd1.0 (0.7-1.1cm)Aortic Root(2D)2.8 (2.0-3.7cm) LVDd5.1 (3.9-5.9cm)LVOT Diameter2.0 (1.8-2.4cm) PWd1.0 (0.7-1.1cm)LVDs2.9 (2.5-4.0cm) FS (%) 30.0 %SV90.2 ml LVEF(%)60.0 (>50%) Aortic Valve AoV Peak Bonifacio.139.3cm/sAoV VTI24.7cm AO Peak GR.7.8mmHgLVOT Peak Bonifacio.151.6cm/s LVOT VTI 24.97cmAO Mean GR.4mmHg DARIA (VMAX)3.43fr2ASH (VTI)3.23cm2 Mitral Valve MV E Cmytiisa97.4cm/sMV DECEL DZTH900ds MV A Ubqlwllt986.0cm/sMV CBH99ao E/A Ratio0.8MVA (PHT)3.81cm2 TDI E/Lateral E'9.1E/Medial E'14.0 Pulmonary Vein S1 Dkcdhwqo13.3cm/sD2 Lsaawgad21.5cm/s LEFT VENTRICLE The left ventricle is normal size. There is normal left ventricular wall thickness. The left ventricu lar systolic function is normal. The Ejection Fraction is 55-60%. There is normal LV segmental wall m otion. Transmitral Doppler flow pattern is Grade I-abnormal relaxation pattern. RIGHT VENTRICLE The right ventricle is normal size. The right ventricular systolic function is normal. ATRIA The left atrium size is normal. The right atrium size is normal. The interatrial septum is intact wit h no evidence for an atrial septal defect or patent foramen ovale as noted on 2-D or Doppler imaging. Injection of bubbles documented no interatrial shunt. AORTIC VALVE The aortic valve is normal in structure and function. Doppler and Color Flow revealed no significant aortic regurgitation. There is no significant aortic valvular stenosis. MITRAL VALVE The mitral valve is normal in structure and function. There is no evidence of mitral valve prolapse. There is no mitral valve stenosis. Doppler and Color-flow revealed trace mitral regurgitation. TRICUSPID VALVE The tricuspid valve is normal in structure and function. Doppler and Color Flow revealed no tricuspid valve regurgitation noted. There is no tricuspid valve stenosis. PULMONIC VALVE The pulmonary valve is normal in structure and function. Doppler and Color Flow revealed no pulmonic valvular regurgitation. There is no pulmonic valvular stenosis. GREAT VESSELS The aortic root is normal in size. The ascending aorta is normal in size. The IVC is normal in size a nd collapses >50% with inspiration. PERICARDIAL EFFUSION There is no evidence of significant pericardial effusion. Critical Notification Critical Value: No <Conclusion> The left ventricular systolic function is normal. The Ejection Fraction is 55-60%. There is normal LV segmental wall motion. Transmitral Doppler flow pattern is Grade I-abnormal relaxation pattern. Doppler and Color-flow revealed trace mitral regurgitation. There is no evidence of significant pericardial effusion. Injection of bubbles documented no interatrial shunt.
[2017-07-29 11:00] VITALS: BP 143/92
--- NOTE | 2017-07-29 11:01 | PDOC ---
PROGRESS NOTES Chief Complaint Chief Complaint 1. NO acute CVA this admit 2. Hx CVA with left residual numbness 3. IN mate 4. Dyslipidmeia 5. Hz SZ with subtherapeuitc levels 6. DM 2 7. Left arm numbness History of Present Illness History of Present Illness NO CVA per MRI ON asa 325 Dilantin moved to 300 qhs LOw levels on admit Asks me why his left arm is numb PLAN: rpt dilantin levels in AM Physiatry consult re lefta rm numbness TRial of gabapentin [facility] say he can get rehab [facility] Worked with PT - I am awaiting their formal eval COnt ASA for now Vitals Vitals Vital Signs Date Time Temp Pulse Resp B/P (MAP) Pulse Ox O2 Delivery O2 Flow Rate FiO2 07/29/17 09:35 78 139/84 07/29/17 07:00 98.2 20 98 Room Air 98.2 Physical Exam General: Alert, Oriented X3, Cooperative Heart: Regular rate, Normal S1, Normal S2 Lungs: Clear Abdomen: Soft Extremities: Other (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 element of subjective/voluntary weakness on my pE??) Skin: No rashes, No breakdown Labs LABS Laboratory Tests Test 07/28/17 15:04 07/28/17 17:50 07/28/17 20:27 07/29/17 03:14 Glucose (Fingerstick) 226 mg/dL (70-99) 243 mg/dL (70-99) 232 mg/dL (70-99) Lactic Acid Level 0.8 mmol/L (0.4-2.0) Test 07/29/17 07:32 07/29/17 09:30 Glucose (Fingerstick) 198 mg/dL (70-99) Phenytoin (Dilantin) Level 8.5 mcg/mL (10.0-20.0) Phenytoin Last Dose Date 07/29/17 Phenytoin Last Dose Time 0747 Review of Systems Review of Systems left arm numb, no soa, cp and pain, emesis Assessment and Plan Assessmemt and Plan Problems Medical Problems: (1) Altered mental status Status: Acute (2) Seizure Status: Acute (3) Seizure-like activity Status: Acute Problems: Comment Review of Relevant I have reviewed the following items marly (where applicable) has been applied. Labs Laboratory Tests Test 07/28/17 10:30 07/28/17 10:32 07/28/17 10:51 07/28/17 15:04 White Blood Count 9.5 x10^3/uL (4.0-11.0) Red Blood Count 4.69 x10^6/uL (4.30-5.70) Hemoglobin 13.7 g/dL (13.0-17.5) Hematocrit 40.9 % (39.0-53.0) Mean Corpuscular Volume 87 fL (79-100) Mean Corpuscular Hemoglobin 29 pg (25-35) Mean Corpuscular Hemoglobin Concent 33 g/dL (31-37) Red Cell Distribution Width 13.7 % (11.5-14.5) Platelet Count 197 x10^3/uL (140-400) Neutrophils (%) (Auto) 74 % (31-73) Lymphocytes (%) (Auto) 19 % (24-48) Monocytes (%) (Auto) 5 % (0-9) Eosinophils (%) (Auto) 1 % (0-3) Basophils (%) (Auto) 1 % (0-3) Neutrophils # (Auto) 7.0 x10^3uL (1.8-7.7) Lymphocytes # (Auto) 1.8 x10^3/uL (1.0-4.8) Monocytes # (Auto) 0.5 x10^3/uL (0.0-1.1) Eosinophils # (Auto) 0.1 x10^3/uL (0.0-0.7) Basophils # (Auto) 0.1 x10^3/uL (0.0-0.2) Sodium Level 139 mmol/L (136-145) Potassium Level 3.8 mmol/L (3.5-5.1) Chloride Level 102 mmol/L (98-107) Carbon Dioxide Level 28 mmol/L (21-32) Anion Gap 9 (6-14) Blood Urea Nitrogen 13 mg/dL (8-26) Creatinine 1.0 mg/dL (0.7-1.3) Estimated GFR (Cockcroft-Gault) 78.8 BUN/Creatinine Ratio 13 (6-20) Glucose Level 328 mg/dL (70-99) Lactic Acid Level 2.1 mmol/L (0.4-2.0) Calcium Level 9.3 mg/dL (8.5-10.1) Total Bilirubin 0.2 mg/dL (0.2-1.0) Aspartate Amino Transf (AST/SGOT) 16 U/L (15-37) Alanine Aminotransferase (ALT/SGPT) 22 U/L (16-63) Alkaline Phosphatase 118 U/L (46-116) Total Protein 7.8 g/dL (6.4-8.2) Albumin 3.7 g/dL (3.4-5.0) Albumin/Globulin Ratio 0.9 (1.0-1.7) Triglycerides Level 173 mg/dL (0-150) Cholesterol Level 157 mg/dL (0-200) LDL Cholesterol, Calculated 76 mg/dL (0-100) VLDL Cholesterol, Calculated 35 mg/dL (0-40) Non-HDL Cholesterol Calculated 111 mg/dL (0-129) HDL Cholesterol 46 mg/dL (40-60) Cholesterol/HDL Ratio 3.4 Phenytoin (Dilantin) Level 1.3 mcg/mL (10.0-20.0) Phenytoin Last Dose Date 07/28/17 Phenytoin Last Dose Time 0800 Glucose (Fingerstick) 293 mg/dL (70-99) 226 mg/dL (70-99) Urine Opiates Screen Neg (NEG) Urine Methadone Screen Neg (NEG) Urine Barbiturates Neg (NEG) Urine Phencyclidine Screen Neg (NEG) Urine Amphetamine/Methamphetamine Neg (NEG) Urine Benzodiazepines Screen Neg (NEG) Urine Cocaine Screen Neg (NEG) Urine Cannabinoids Screen Neg (NEG) Urine Ethyl Alcohol Neg (NEG) Test 07/28/17 17:50 07/28/17 20:27 07/29/17 03:14 07/29/17 07:32 Lactic Acid Level 0.8 mmol/L (0.4-2.0) Glucose (Fingerstick) 243 mg/dL (70-99) 232 mg/dL (70-99) 198 mg/dL (70-99) Test 07/29/17 09:30 Phenytoin (Dilantin) Level 8.5 mcg/mL (10.0-20.0) Phenytoin Last Dose Date 07/29/17 Phenytoin Last Dose Time 0747 Laboratory Tests Test 07/28/17 15:04 07/28/17 17:50 07/28/17 20:27 07/29/17 03:14 Glucose (Fingerstick) 226 mg/dL (70-99) 243 mg/dL (70-99) 232 mg/dL (70-99) Lactic Acid Level 0.8 mmol/L (0.4-2.0) Test 07/29/17 07:32 07/29/17 09:30 Glucose (Fingerstick) 198 mg/dL (70-99) Phenytoin (Dilantin) Level 8.5 mcg/mL (10.0-20.0) Phenytoin Last Dose Date 07/29/17 Phenytoin Last Dose Time 07 Medications Current Medications Lorazepam (Ativan) 2 mg 1X ONCE IV Last administered on 07/28/17 10:32; Start 07/28/17 at 10:30; Stop 07/28/17 at 10:37; Status DC Lorazepam (Ativan) 2 mg PRN Q4HRS PRN IV ANXIETY / AGITATION Last administered on 07/29/17 03:11; Start 07/28/17 at 10:30 Sodium Chloride 1,000 ml @ 1,000 mls/hr 1X ONCE IV Last administered on 07/28 11:55; Start 07/28/17 at 11:30; Stop 07/28/17 at 12:29; Status DC Fosphenytoin Sodium 1000 mg/ Sodium Chloride 70 ml @ 280 mls/hr 1X ONCE IV Last administered on 07/28/17 11:59; Start 07/28/17 at 11:30; Stop 07/28/17 at 11:44; Status DC Aspirin (Domonique Aspirin) 325 mg DAILYWBKFT PO Last administered on 07/29/17 08 :07; Start 07/28/17 at 16:00 Atorvastatin Calcium (Lipitor) 20 mg QHS PO Last administered on 07/28/17 20: 38; Start 07/28/17 at 21:00 Gadobutrol (Gadavist) 7.5 mmol 1X ONCE IV Last administered on 07/28/17 16: 45; Start 07/28/17 at 16:45; Stop 07/28/17 at 16:46; Status DC Lisinopril (Prinivil) 20 mg DAILY PO Last administered on 07/29/17 09:35; Start 07/29/17 at 09:00 Metformin HCl (Glucophage) 1,000 mg BIDWMEALS PO Last administered on 08:07; Start 07/28/17 at 17:00 Phenytoin Sodium (Dilantin) 100 mg TID PO Last administered on 07/29/17 09:36 ; Start 07/28/17 at 21:00; Stop 07/29/17 at 09:52; Status DC Hydroxyzine Pamoate (Vistaril) 50 mg DAILY PO Last administered on 07/29/17 09:35; Start 07/29/17 at 09:00 Risperidone (RisperDAL) 0.5 mg QHS PO Last administered on 07/28/17 20:38; Start 07/28/17 at 21:00 Insulin Aspart (NovoLOG) 0-7 UNITS TIDWMEALS SQ Last administered on 17:48; Start 07/28/17 at 17:00; Stop 07/28/17 at 22:58; Status DC Dextrose (Dextrose 50%-Water Syringe) 12.5 gm PRN Q15MIN PRN IV SEE COMMENTS; Start 07/28/17 at 17:00; Status Cancel Oxycodone/ Acetaminophen (Percocet 5/325) 1 tab PRN Q6HRS PRN PO PAIN Last administered on 07/28/17 21:22; Start 07/28/17 at 21:00 Amlodipine Besylate (Norvasc) 5 mg DAILY PO Last administered on 07/29/17 09: 35; Start 07/28/17 at 21:00 Insulin Aspart (NovoLOG) 0-7 UNITS QIDACHS SQ Last administered on 07/28/17 23:07; Start 07/28/17 at 23:00; Stop 07/29/17 at 07:50; Status DC Insulin Aspart (NovoLOG) 0-9 UNITS TIDWMEALS SQ Last administered on 08:15; Start 07/29/17 at 08:00 Dextrose (Dextrose 50%-Water Syringe) 12.5 gm PRN Q15MIN PRN IV SEE COMMENTS; Start 07/29/17 at 08:00 Acetaminophen (Tylenol) 500 mg PRN Q6HRS PRN PO MILD PAIN / TEMP; Start at 08:00 Ondansetron HCl (Zofran) 4 mg PRN Q6HRS PRN IV NAUSEA/VOMITING; Start at 08:00 Phenytoin Sodium (Dilantin) 300 mg QHS PO ; Start 07/29/17 at 21:00 Active Scripts Active Reported Novolin N (Nph, Human Insulin Isophane) 100 Unit/1 Ml Vial 1 Unit SQ Risperidone 0.5 Mg Tablet 1 Tab PO QHS Metformin Hcl 1,000 Mg Tablet 1,000 Mg PO BIDWMEALS Dilantin (Phenytoin Sodium Extended) 100 Mg Capsule 100 Mg PO TID Vistaril (Hydroxyzine Pamoate) 50 Mg Capsule 1 Cap PO DAILY Humulin R (Insulin Regular, Human) 100 Unit/1 Ml Vial 100 Unit IJ Vistaril (Hydroxyzine Pamoate) 50 Mg Capsule 1 Cap PO TID Lisinopril 20 Mg Tablet 1 Tab PO DAILY Vitals/I & O Vital Sign - Last 24 Hours 07/28/17 07/28/17 07/28/17 07/28/17 11:08 11:23 11:38 11:53 Pulse 84 74 80 80 Pulse Ox 98 98 98 99 07/28/17 07/28/17 07/28/17 07/28/17 12:23 12:53 13:23 13:25 Pulse 82 82 86 80 Pulse Ox 99 98 99 99 07/28/17 07/28/17 07/28/17 07/28/17 13:30 13:35 13:40 13:45 Pulse 80 86 76 80 Pulse Ox 99 98 100 100 07/28/17 07/28/17 07/28/17 07/28/17 13:50 13:55 15:00 19:00 Temp 97.7 98.4 97.7 98.4 Pulse 72 78 84 86 Resp 20 20 B/P (MAP) 160/94 (116) 157/101 (119) Pulse Ox 100 99 97 97 O2 Delivery Room Air Room Air 07/28/17 07/28/17 07/28/17 07/28/17 20:37 20:40 21:22 21:22 Pulse 86 Resp 20 B/P (MAP) 156/94 (114) 156/84 O2 Delivery Room Air Room Air 07/28/17 07/28/17 07/29/17 07/29/17 22:25 23:00 03:26 07:00 Temp 98.3 98.4 98.2 98.3 98.4 98.2 Pulse 83 87 78 Resp 20 20 20 20 B/P (MAP) 155/88 (110) 134/79 (97) 139/84 (102) Pulse Ox 96 96 98 O2 Delivery Room Air Room Air Nasal Cannula Room Air 07/29/17 07/29/17 09:35 09:35 Pulse 78 78 B/P (MAP) 139/84 139/84 Intake and Output 07/28/17 07/28/17 07/29/17 14:59 22:59 06:59 Intake Total 1070 ml 400 ml Output Total 1000 ml Balance 70 ml 400 ml ESE HAYES MD Jul 29, 2017 11:01
[2017-07-29] MEDS: GABAPENTIN 100 MG CAPSULE. PO SCH ×2 (11:55→21:21)
[2017-07-29 15:00] VITALS: BP 134/80
[2017-07-29] MEDS ORDERED: INFLUENZA VAX SCREEN BY RX. MC ONE (17:00)
[2017-07-29] MEDS ORDERED: PNEUMOCOCCAL VAX SCREEN BY RX. MC ONE (17:00)
[2017-07-29 19:00] VITALS: BP 147/98
[2017-07-29] MEDS ORDERED: PHENYTOIN SODIUM EXTENDED 100 MG CAPSULE PO SCH (21:00)
[2017-07-29] MEDS: ATORVASTATIN CALCIUM 20 MG TABLET PO SCH (21:21)
[2017-07-29] MEDS: risperiDONE 0.25 MG TABLET. PO SCH (21:21)
[2017-07-29] MEDS: oxyCODONE/APAP 5/325 1 TAB TABLET PO PRN (21:33)
[2017-07-29 23:00] VITALS: BP 149/85
[2017-07-30] VITALS (7 sets, daily range): BP systolic 119–141; BP diastolic 71–80
[2017-07-30] MEDS: hydrOXYzine PAMOATE 25 MG CAPSULE PO SCH (08:33)
[2017-07-30] MEDS: ASPIRIN 325 MG TABLET PO SCH (08:33)
[2017-07-30] MEDS: GABAPENTIN 100 MG CAPSULE. PO SCH ×3 (08:33→20:44)
[2017-07-30] MEDS: LISINOPRIL 20 MG TABLET PO SCH (08:34)
[2017-07-30] MEDS: amLODIPine BESYLATE 5 MG TABLET PO SCH (08:34)
[2017-07-30] MEDS: INSULIN ASPART 300 UNITS/3 ML INSULN.PEN SQ SCH ×3 (08:39→16:54)
[2017-07-30] MEDS ORDERED: PNEUMOC CONJ VACC 23-VALENT 0.5 ML VIAL. VAX IM ONE (09:00)
[2017-07-30] MEDS ORDERED: FLU VACC QS2017-18 (36MOS+)/PF 0.5 ML SYRINGE. VAX IM ONE (09:00)
[2017-07-30] MEDS ORDERED: FOSPHENYTOIN 500 MG in IV NORMAL SALINE 50ML 50 ML IV ONE (09:00)
--- NOTE | 2017-07-30 10:09 | PDOC ---
PROGRESS NOTES Subjective Subjective He c/o of being dizzy this AM. Objective Objective Vital Signs Date Time Temp Pulse Resp B/P (MAP) Pulse Ox O2 Delivery O2 Flow Rate FiO2 07/30/17 08:34 86 133/71 07/30/17 07:04 98 Room Air 07/30/17 07:00 97.3 20 97.3 Intake and Output 07/30/17 07:00 Intake Total 720 ml Output Total 1000 ml Balance -280 ml Intake Oral 720 ml Output Urine Total 1000 ml Physical Exam Physical Exam He is awake and talking and moves both upper extremities voluntarily and no active movements of his lower extremities,despite no obvious muscle atrophy.He continues with seizures. Assessment Assessment Problems Medical Problems: (1) Altered mental status Status: Acute (2) Seizure Status: Acute (3) Seizure-like activity Status: Acute Plan Plan of Care He probably need psychological assistance when medically stable. Comment Review of Relevant I have reviewed the following items marly (where applicable) has been applied. Labs Laboratory Tests Test 07/28/17 10:30 07/28/17 10:32 07/28/17 10:51 07/28/17 15:04 White Blood Count 9.5 x10^3/uL (4.0-11.0) Red Blood Count 4.69 x10^6/uL (4.30-5.70) Hemoglobin 13.7 g/dL (13.0-17.5) Hematocrit 40.9 % (39.0-53.0) Mean Corpuscular Volume 87 fL (79-100) Mean Corpuscular Hemoglobin 29 pg (25-35) Mean Corpuscular Hemoglobin Concent 33 g/dL (31-37) Red Cell Distribution Width 13.7 % (11.5-14.5) Platelet Count 197 x10^3/uL (140-400) Neutrophils (%) (Auto) 74 % (31-73) Lymphocytes (%) (Auto) 19 % (24-48) Monocytes (%) (Auto) 5 % (0-9) Eosinophils (%) (Auto) 1 % (0-3) Basophils (%) (Auto) 1 % (0-3) Neutrophils # (Auto) 7.0 x10^3uL (1.8-7.7) Lymphocytes # (Auto) 1.8 x10^3/uL (1.0-4.8) Monocytes # (Auto) 0.5 x10^3/uL (0.0-1.1) Eosinophils # (Auto) 0.1 x10^3/uL (0.0-0.7) Basophils # (Auto) 0.1 x10^3/uL (0.0-0.2) Sodium Level 139 mmol/L (136-145) Potassium Level 3.8 mmol/L (3.5-5.1) Chloride Level 102 mmol/L (98-107) Carbon Dioxide Level 28 mmol/L (21-32) Anion Gap 9 (6-14) Blood Urea Nitrogen 13 mg/dL (8-26) Creatinine 1.0 mg/dL (0.7-1.3) Estimated GFR (Cockcroft-Gault) 78.8 BUN/Creatinine Ratio 13 (6-20) Glucose Level 328 mg/dL (70-99) Lactic Acid Level 2.1 mmol/L (0.4-2.0) Calcium Level 9.3 mg/dL (8.5-10.1) Total Bilirubin 0.2 mg/dL (0.2-1.0) Aspartate Amino Transf (AST/SGOT) 16 U/L (15-37) Alanine Aminotransferase (ALT/SGPT) 22 U/L (16-63) Alkaline Phosphatase 118 U/L (46-116) Total Protein 7.8 g/dL (6.4-8.2) Albumin 3.7 g/dL (3.4-5.0) Albumin/Globulin Ratio 0.9 (1.0-1.7) Triglycerides Level 173 mg/dL (0-150) Cholesterol Level 157 mg/dL (0-200) LDL Cholesterol, Calculated 76 mg/dL (0-100) VLDL Cholesterol, Calculated 35 mg/dL (0-40) Non-HDL Cholesterol Calculated 111 mg/dL (0-129) HDL Cholesterol 46 mg/dL (40-60) Cholesterol/HDL Ratio 3.4 Phenytoin (Dilantin) Level 1.3 mcg/mL (10.0-20.0) Phenytoin Last Dose Date 07/28/17 Phenytoin Last Dose Time 0800 Glucose (Fingerstick) 293 mg/dL (70-99) 226 mg/dL (70-99) Urine Opiates Screen Neg (NEG) Urine Methadone Screen Neg (NEG) Urine Barbiturates Neg (NEG) Urine Phencyclidine Screen Neg (NEG) Urine Amphetamine/Methamphetamine Neg (NEG) Urine Benzodiazepines Screen Neg (NEG) Urine Cocaine Screen Neg (NEG) Urine Cannabinoids Screen Neg (NEG) Urine Ethyl Alcohol Neg (NEG) Test 07/28/17 16:00 07/28/17 17:50 07/28/17 20:27 07/29/17 03:14 Nasal Screen MRSA (PCR) Negative (Negative) Lactic Acid Level 0.8 mmol/L (0.4-2.0) Glucose (Fingerstick) 243 mg/dL (70-99) 232 mg/dL (70-99) Test 07/29/17 07:32 07/29/17 09:30 07/29/17 10:54 07/29/17 16:39 Glucose (Fingerstick) 198 mg/dL (70-99) 297 mg/dL (70-99) 220 mg/dL (70-99) Phenytoin (Dilantin) Level 8.5 mcg/mL (10.0-20.0) Phenytoin Last Dose Date 07/29/17 Phenytoin Last Dose Time 0747 Test 07/29/17 20:16 07/30/17 04:20 07/30/17 07:19 Glucose (Fingerstick) 258 mg/dL (70-99) 191 mg/dL (70-99) Phenytoin (Dilantin) Level 7.1 mcg/mL (10.0-20.0) Phenytoin Last Dose Date 07/29/17 Phenytoin Last Dose Time 2100 Laboratory Tests Test 07/29/17 10:54 07/29/17 16:39 07/29/17 20:16 07/30/17 04:20 Glucose (Fingerstick) 297 mg/dL (70-99) 220 mg/dL (70-99) 258 mg/dL (70-99) Phenytoin (Dilantin) Level 7.1 mcg/mL (10.0-20.0) Phenytoin Last Dose Date 07/29/17 Phenytoin Last Dose Time 2100 Test 07/30/17 07:19 Glucose (Fingerstick) 191 mg/dL (70-99) Medications Current Medications Lorazepam (Ativan) 2 mg 1X ONCE IV Last administered on 07/28/17t 10:32; Start 07/28/17 at 10:30; Stop 07/28/17 at 10:37; Status DC Lorazepam (Ativan) 2 mg PRN Q4HRS PRN IV ANXIETY / AGITATION Last administered on 07/30/17 07:01; Start 07/28/17 at 10:30 Sodium Chloride 1,000 ml @ 1,000 mls/hr 1X ONCE IV Last administered on 07/28 11:55; Start 07/28/17 at 11:30; Stop 07/28/17 at 12:29; Status DC Fosphenytoin Sodium 1000 mg/ Sodium Chloride 70 ml @ 280 mls/hr 1X ONCE IV Last administered on 07/28/17 11:59; Start 07/28/17 at 11:30; Stop 07/28/17 at 11:44; Status DC Aspirin (Domonique Aspirin) 325 mg DAILYWBKFT PO Last administered on 07/30/17 08 :33; Start 07/28/17 at 16:00 Atorvastatin Calcium (Lipitor) 20 mg QHS PO Last administered on 07/29/17 21: 21; Start 07/28/17 at 21:00 Gadobutrol (Gadavist) 7.5 mmol 1X ONCE IV Last administered on 07/28/17 16: 45; Start 07/28/17 at 16:45; Stop 07/28/17 at 16:46; Status DC Lisinopril (Prinivil) 20 mg DAILY PO Last administered on 07/30/17 08:34; Start 07/29/17 at 09:00 Metformin HCl (Glucophage) 1,000 mg BIDWMEALS PO Last administered on 08:33; Start 07/28/17 at 17:00 Phenytoin Sodium (Dilantin) 100 mg TID PO Last administered on 07/29/17 09:36 ; Start 07/28/17 at 21:00; Stop 07/29/17 at 09:52; Status DC Hydroxyzine Pamoate (Vistaril) 50 mg DAILY PO Last administered on 07/30/17 08:33; Start 07/29/17 at 09:00 Risperidone (RisperDAL) 0.5 mg QHS PO Last administered on 07/29/17 21:21; Start 07/28/17 at 21:00 Insulin Aspart (NovoLOG) 0-7 UNITS TIDWMEALS SQ Last administered on 17:48; Start 07/28/17 at 17:00; Stop 07/28/17 at 22:58; Status DC Dextrose (Dextrose 50%-Water Syringe) 12.5 gm PRN Q15MIN PRN IV SEE COMMENTS; Start 07/28/17 at 17:00; Status Cancel Oxycodone/ Acetaminophen (Percocet 5/325) 1 tab PRN Q6HRS PRN PO PAIN Last administered on 07/29/17 21:33; Start 07/28/17 at 21:00 Amlodipine Besylate (Norvasc) 5 mg DAILY PO Last administered on 07/30/17 08: 34; Start 07/28/17 at 21:00 Insulin Aspart (NovoLOG) 0-7 UNITS QIDACHS SQ Last administered on 07/28/17 23:07; Start 07/28/17 at 23:00; Stop 07/29/17 at 07:50; Status DC Insulin Aspart (NovoLOG) 0-9 UNITS TIDWMEALS SQ Last administered on 08:39; Start 07/29/17 at 08:00 Dextrose (Dextrose 50%-Water Syringe) 12.5 gm PRN Q15MIN PRN IV SEE COMMENTS; Start 07/29/17 at 08:00 Acetaminophen (Tylenol) 500 mg PRN Q6HRS PRN PO MILD PAIN / TEMP; Start at 08:00 Ondansetron HCl (Zofran) 4 mg PRN Q6HRS PRN IV NAUSEA/VOMITING; Start at 08:00 Phenytoin Sodium (Dilantin) 300 mg QHS PO Last administered on 07/29/17 21:21 ; Start 07/29/17 at 21:00; Stop 07/30/17 at 08:51; Status DC Gabapentin (Neurontin) 100 mg TID PO Last administered on 07/30/17 08:33; Start 07/29/17 at 11:30 Lorazepam (Ativan) 2 mg STK-MED ONCE .ROUTE ; Start 07/28/17 at 10:27; Stop at 12:21; Status DC Info (Do NOT chart on this placeholder) 1 each 1X ONCE MC ; Start 07/29/17 at 17:00; Stop 07/29/17 at 17:01; Status UNV Pneumococcal Polyvalent Vaccine (Do NOT chart on this placeholder) 1 each 1X ONCE MC ; Start 07/29/17 at 17:00; Stop 07/29/17 at 17:01; Status UNV Influenza Virus Vaccine Quadrival (Fluarix Quad [id number] Syringe) 0.5 ml ONCE ONCE VAX IM ; Start 07/30/17 at 09:00; Stop 07/30/17 at 09:01; Status DC Pneumococcal Polyvalent Vaccine (Pneumovax 23) 0.5 ml ONCE ONCE VAX IM ; Start 07/30/17 at 09:00; Stop 07/30/17 at 09:01; Status DC Phenytoin Sodium (Dilantin) 400 mg QHS PO ; Start 07/30/17 at 21:00 Fosphenytoin Sodium 500 mg/ Sodium Chloride 60 ml @ 240 mls/hr 1X ONCE IV Last administered on 07/30/17t 09:26; Start 07/30/17 at 09:00; Stop 07/30/17 at 09:14; Status DC Active Scripts Active Reported Novolin N (Nph, Human Insulin Isophane) 100 Unit/1 Ml Vial 1 Unit SQ Risperidone 0.5 Mg Tablet 1 Tab PO QHS Metformin Hcl 1,000 Mg Tablet 1,000 Mg PO BIDWMEALS Dilantin (Phenytoin Sodium Extended) 100 Mg Capsule 100 Mg PO TID Vistaril (Hydroxyzine Pamoate) 50 Mg Capsule 1 Cap PO DAILY Humulin R (Insulin Regular, Human) 100 Unit/1 Ml Vial 100 Unit IJ Vistaril (Hydroxyzine Pamoate) 50 Mg Capsule 1 Cap PO TID Lisinopril 20 Mg Tablet 1 Tab PO DAILY Vitals/I & O Vital Sign - Last 24 Hours 07/29/17 07/29/17 07/29/17 07/29/17 11:00 15:00 19:00 20:00 Temp 96.6 98.1 98.2 96.6 98.1 98.2 Pulse 83 72 74 Resp 20 18 18 B/P (MAP) 143/92 (109) 134/80 (98) 147/98 (114) Pulse Ox 99 98 97 O2 Delivery Room Air Room Air Room Air Room Air 07/29/17 07/29/17 07/29/1707/30/17 21:33 22:33 23:00 03:00 Temp 97.4 96.6 97.4 96.6 Pulse 87 60 Resp 18 18 B/P (MAP) 149/85 (106) 141/80 (100) Pulse Ox 98 98 97 98 O2 Delivery Room Air Room Air Room Air Room Air 07/30/17 07/30/17 07/30/17 07/30/17 07:00 07:04 08:34 08:34 Temp 97.3 97.3 Pulse 82 86 86 86 Resp 20 B/P (MAP) 122/75 (91) 133/71 (91) 133/71 133/71 Pulse Ox 97 98 O2 Delivery Room Air Room Air Intake and Output 07/29/17 07/29/17 07/30/17 15:00 23:00 07:00 Intake Total 180 ml 540 ml Output Total 300 ml 700 ml Balance 180 ml -300 ml -160 ml MARIA D PLAZA MD Jul 30, 2017 10:09
--- NOTE | 2017-07-30 10:33 | CONS ---
DATE OF CONSULTATION: 07/29/2017 ATTENDING PHYSICIAN: Dr. Coley. The patient was seen at the request of Dr. Flores for rehab evaluation. 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 The patient usually gets around in a wheelchair level, had a ramp. He lives with his friend. The patient has been incarcerated for the last one week. The patient was admitted with a seizure on 07/28/2017. His serum Dilantin level is subtherapeutic. CT scan of the brain and MRI scan of the brain done failed to reveal any acute abnormalities. They revealed scattered focal areas of signal change within the cerebral white matter due to chronic small vessel ischemic disease, and CT scan of the brain was within normal limits. Carotid Doppler study failed to reveal any significant stenosis. The patient with known psychological problems. He has not worked in his life. ALLERGIES: HE IS KNOWN ALLERGIC TO PENICILLIN. PHYSICAL EXAMINATION: Today revealed a middle-aged male. He is alert, oriented to place and person, follows commands appropriately, maybe, mild left central facial paresis. No obvious visual field cut noted. He had relative weakness of left wrist and finger extensors. He had, maybe, trace hip extension. Otherwise, no voluntary motion noted in his lower extremities, but his muscle bulk is in good condition. The patient had painful range of motion on both lower extremities joints. He had decreased touch and pinprick sensation from umbilicus down bilaterally, left side more than right side. He had absent knee and ankle jerks. Plantar reflex is equivocal. The patient had incoordination using his left upper extremity to some extent. His skin is intact at this time. He denies any neck or back pain. Straight leg raising test is negative bilaterally. He had some difficulty trying to find proper words, it took a couple of minutes for him to say his first name. ASSESSMENT: A middle-aged male with seizure disorder, admitted with seizures. The patient with history of previous cerebrovascular accident with left hemiparesis, but he presents without any significant movements of both lower extremities and decreased sensation below the waist level bilaterally and also relative weakness of left upper extremity, especially with wrist and finger extensors, negative Tinel sign over left radial nerve at spiral groove. He denies any neck pain to consider anything coming from his neck. RECOMMENDATIONS: To ask Physical Therapy and Occupational Therapy to see him to get him up as tolerated back to where he was living when he is medically stable. Dr. Flores, I appreciate asking me to participate in the care of this interesting patient. I will be glad to see him for followup on as needed basis. MARIA D PLAZA MD DR: YEFRI/jackelyn JOB#: [id number] / [id number]
--- NOTE | 2017-07-30 11:14 | PDOC ---
PROGRESS NOTES Assessment Problems Medical Problems: (1) Altered mental status Status: Acute (2) Seizure Status: Acute (3) Seizure-like activity Status: Acute Epilepsy: he had 2 seizures, last night, and this morning, neither of which I was notified. He received Ativan each time, even though the seizures had already abated Still has subtherapeutic phenytoin level History of stroke with left hemiparesis Plan Increase phenytoin to 400 mg HS, and I ordered 500 mg intravenously Not ready for discharge Hold off on repeating his EEG or adding a 2nd anticonvulsant, unless he continues to have breakthrough seizures with therapeutic level. No Ativan unless seizures are lasting more than 3 minutes, and in particular no Ativan if the seizure has already stopped. I asked the nurse and ordered in the chart to be notified each time there is a seizure. Subjective Complains of dizziness, note that he has received 2 doses of Ativan Objective Vital Signs Date Time Temp Pulse Resp B/P (MAP) Pulse Ox O2 Delivery O2 Flow Rate FiO2 07/30/17 10:53 98.1 85 20 119/73 (88) 94 Room Air 98.1 Intake and Output 07/30/17 07:00 Intake Total 720 ml Output Total 1000 ml Balance -280 ml Intake Oral 720 ml Output Urine Total 1000 ml PHYSICAL EXAM Alert. Oriented only to person. PERRL. EOMI. CN: Mild left central facial weakness, otherwise normal cranial nerves. Muscle tone: normal. Muscle strength: 4/5 left hemiparesis DTR: 2+ Plantar reflex: flexor Gait: not examined in bed. Sensory exam: no abnormal findings. No cerebellar signs elicited. Review of Relevant I have reviewed the following items marly (where applicable) has been applied. Labs Laboratory Tests Test 07/28/17 15:04 07/28/17 16:00 07/28/17 17:50 07/28/17 20:27 Glucose (Fingerstick) 226 mg/dL (70-99) 243 mg/dL (70-99) Nasal Screen MRSA (PCR) Negative (Negative) Lactic Acid Level 0.8 mmol/L (0.4-2.0) Test 07/29/17 03:14 07/29/17 07:32 07/29/17 09:30 07/29/17 10:54 Glucose (Fingerstick) 232 mg/dL (70-99) 198 mg/dL (70-99) 297 mg/dL (70-99) Phenytoin (Dilantin) Level 8.5 mcg/mL (10.0-20.0) Phenytoin Last Dose Date 07/29/17 Phenytoin Last Dose Time 0747 Test 07/29/17 16:39 07/29/17 20:16 07/30/17 04:20 07/30/17 07:19 Glucose (Fingerstick) 220 mg/dL (70-99) 258 mg/dL (70-99) 191 mg/dL (70-99) Phenytoin (Dilantin) Level 7.1 mcg/mL (10.0-20.0) Phenytoin Last Dose Date 07/29/17 Phenytoin Last Dose Time 2100 Laboratory Tests Test 07/29/17 16:39 07/29/17 20:16 07/30/17 04:20 07/30/17 07:19 Glucose (Fingerstick) 220 mg/dL (70-99) 258 mg/dL (70-99) 191 mg/dL (70-99) Phenytoin (Dilantin) Level 7.1 mcg/mL (10.0-20.0) Phenytoin Last Dose Date 07/29/17 Phenytoin Last Dose Time 2100 Medications Current Medications Lorazepam (Ativan) 2 mg 1X ONCE IV Last administered on 07/28/17 10:32; Start 07/28/17 at 10:30; Stop 07/28/17 at 10:37; Status DC Lorazepam (Ativan) 2 mg PRN Q4HRS PRN IV ANXIETY / AGITATION Last administered on 07/30/17 07:01; Start 07/28/17 at 10:30 Sodium Chloride 1,000 ml @ 1,000 mls/hr 1X ONCE IV Last administered on 07/28 11:55; Start 07/28/17 at 11:30; Stop 07/28/17 at 12:29; Status DC Fosphenytoin Sodium 1000 mg/ Sodium Chloride 70 ml @ 280 mls/hr 1X ONCE IV Last administered on 07/28/17 11:59; Start 07/28/17 at 11:30; Stop 07/28/17 at 11:44; Status DC Aspirin (Domonique Aspirin) 325 mg DAILYWBKFT PO Last administered on 07/30/17 08 :33; Start 07/28/17 at 16:00 Atorvastatin Calcium (Lipitor) 20 mg QHS PO Last administered on 07/29/17 21: 21; Start 07/28/17 at 21:00 Gadobutrol (Gadavist) 7.5 mmol 1X ONCE IV Last administered on 07/28/17 16: 45; Start 07/28/17 at 16:45; Stop 07/28/17 at 16:46; Status DC Lisinopril (Prinivil) 20 mg DAILY PO Last administered on 07/30/17 08:34; Start 07/29/17 at 09:00 Metformin HCl (Glucophage) 1,000 mg BIDWMEALS PO Last administered on 08:33; Start 07/28/17 at 17:00 Phenytoin Sodium (Dilantin) 100 mg TID PO Last administered on 07/29/17 09:36 ; Start 07/28/17 at 21:00; Stop 07/29/17 at 09:52; Status DC Hydroxyzine Pamoate (Vistaril) 50 mg DAILY PO Last administered on 07/30/17 08:33; Start 07/29/17 at 09:00 Risperidone (RisperDAL) 0.5 mg QHS PO Last administered on 07/29/17 21:21; Start 07/28/17 at 21:00 Insulin Aspart (NovoLOG) 0-7 UNITS TIDWMEALS SQ Last administered on 17:48; Start 07/28/17 at 17:00; Stop 07/28/17 at 22:58; Status DC Dextrose (Dextrose 50%-Water Syringe) 12.5 gm PRN Q15MIN PRN IV SEE COMMENTS; Start 07/28/17 at 17:00; Status Cancel Oxycodone/ Acetaminophen (Percocet 5/325) 1 tab PRN Q6HRS PRN PO PAIN Last administered on 07/29/17 21:33; Start 07/28/17 at 21:00 Amlodipine Besylate (Norvasc) 5 mg DAILY PO Last administered on 07/30/17 08: 34; Start 07/28/17 at 21:00 Insulin Aspart (NovoLOG) 0-7 UNITS QIDACHS SQ Last administered on 07/28/17 23:07; Start 07/28/17 at 23:00; Stop 07/29/17 at 07:50; Status DC Insulin Aspart (NovoLOG) 0-9 UNITS TIDWMEALS SQ Last administered on 08:39; Start 07/29/17 at 08:00 Dextrose (Dextrose 50%-Water Syringe) 12.5 gm PRN Q15MIN PRN IV SEE COMMENTS; Start 07/29/17 at 08:00 Acetaminophen (Tylenol) 500 mg PRN Q6HRS PRN PO MILD PAIN / TEMP; Start at 08:00 Ondansetron HCl (Zofran) 4 mg PRN Q6HRS PRN IV NAUSEA/VOMITING; Start at 08:00 Phenytoin Sodium (Dilantin) 300 mg QHS PO Last administered on 07/29/17 21:21 ; Start 07/29/17 at 21:00; Stop 07/30/17 at 08:51; Status DC Gabapentin (Neurontin) 100 mg TID PO Last administered on 07/30/17 08:33; Start 07/29/17 at 11:30 Lorazepam (Ativan) 2 mg STK-MED ONCE .ROUTE ; Start 07/28/17 at 10:27; Stop at 12:21; Status DC Info (Do NOT chart on this placeholder) 1 each 1X ONCE MC ; Start 07/29/17 at 17:00; Stop 07/29/17 at 17:01; Status UNV Pneumococcal Polyvalent Vaccine (Do NOT chart on this placeholder) 1 each 1X ONCE MC ; Start 07/29/17 at 17:00; Stop 07/29/17 at 17:01; Status UNV Influenza Virus Vaccine Quadrival (Fluarix Quad [id number] Syringe) 0.5 ml ONCE ONCE VAX IM ; Start 07/30/17 at 09:00; Stop 07/30/17 at 09:01; Status DC Pneumococcal Polyvalent Vaccine (Pneumovax 23) 0.5 ml ONCE ONCE VAX IM ; Start 07/30/17 at 09:00; Stop 07/30/17 at 09:01; Status DC Phenytoin Sodium (Dilantin) 400 mg QHS PO ; Start 07/30/17 at 21:00 Fosphenytoin Sodium 500 mg/ Sodium Chloride 60 ml @ 240 mls/hr 1X ONCE IV Last administered on 07/30/17t 09:26; Start 07/30/17 at 09:00; Stop 07/30/17 at 09:14; Status DC Active Scripts Active Reported Novolin N (Nph, Human Insulin Isophane) 100 Unit/1 Ml Vial 1 Unit SQ Risperidone 0.5 Mg Tablet 1 Tab PO QHS Metformin Hcl 1,000 Mg Tablet 1,000 Mg PO BIDWMEALS Dilantin (Phenytoin Sodium Extended) 100 Mg Capsule 100 Mg PO TID Vistaril (Hydroxyzine Pamoate) 50 Mg Capsule 1 Cap PO DAILY Humulin R (Insulin Regular, Human) 100 Unit/1 Ml Vial 100 Unit IJ Vistaril (Hydroxyzine Pamoate) 50 Mg Capsule 1 Cap PO TID Lisinopril 20 Mg Tablet 1 Tab PO DAILY Vitals/I & O Vital Sign - Last 24 Hours 07/29/17 07/29/17 07/29/17 07/29/17 15:00 19:00 20:00 21:33 Temp 98.1 98.2 98.1 98.2 Pulse 72 74 Resp 18 18 B/P (MAP) 134/80 (98) 147/98 (114) Pulse Ox 98 97 98 O2 Delivery Room Air Room Air Room Air Room Air 07/29/17 07/29/17 07/30/17 07/30/17 22:33 23:00 03:00 07:00 Temp 97.4 96.6 97.3 97.4 96.6 97.3 Pulse 87 60 82 Resp 18 18 20 B/P (MAP) 149/85 (106) 141/80 (100) 122/75 (91) Pulse Ox 98 97 98 97 O2 Delivery Room Air Room Air Room Air Room Air 07/30/17 07/30/17 07/30/17 07/30/17 07:04 07:45 08:34 08:34 Pulse 86 86 86 B/P (MAP) 133/71 (91) 133/71 133/71 Pulse Ox 98 O2 Delivery Room Air Room Air 07/30/17 10:53 Temp 98.1 98.1 Pulse 85 Resp 20 B/P (MAP) 119/73 (88) Pulse Ox 94 O2 Delivery Room Air Intake and Output 07/29/17 07/29/17 07/30/17 15:00 23:00 07:00 Intake Total 180 ml 540 ml Output Total 300 ml 700 ml Balance 180 ml -300 ml -160 ml TWAN WILEY MD Jul 30, 2017 11:14
--- NOTE | 2017-07-30 14:14 | PDOC ---
PROGRESS NOTES Chief Complaint Chief Complaint 1. NO acute CVA this admit 2. Hx CVA with left residual numbness 3. IN mate 4. Dyslipidmeia 5. Hz SZ with subtherapeuitc levels 6. DM 2 7. Left arm numbness History of Present Illness History of Present Illness SZ this AM Witnessed by guards, lasted 2-3 mins Was shaking from shoulders down to his feet DIlantin inc to 400 qhs from 300 qhs by neuro DIlantin levels still low but increasing (1,8,7 in last 3 consec days) Left arm still numb PLAN: Needs to stay still in house MRI neg DIlantin level check again in a few days Follow neuro recs SZ prec Vitals Vitals Vital Signs Date Time Temp Pulse Resp B/P (MAP) Pulse Ox O2 Delivery O2 Flow Rate FiO2 07/30/17 10:53 98.1 85 20 119/73 (88) 94 Room Air 98.1 Physical Exam General: Alert, Oriented X3, Cooperative Heart: Regular rate, Normal S1, Normal S2 Lungs: Clear Abdomen: Soft Extremities: Other (left resideual weakn,ess left house admin contracture? element of subjective/voluntary weakness on my pE??) Skin: No rashes, No breakdown Labs LABS Laboratory Tests Test 07/29/17 16:39 07/29/17 20:16 07/30/17 04:20 07/30/17 07:19 Glucose (Fingerstick) 220 mg/dL (70-99) 258 mg/dL (70-99) 191 mg/dL (70-99) Phenytoin (Dilantin) Level 7.1 mcg/mL (10.0-20.0) Phenytoin Last Dose Date 07/29/17 Phenytoin Last Dose Time 2100 Test 07/30/17 11:16 Glucose (Fingerstick) 288 mg/dL (70-99) Review of Systems Review of Systems headache, weak, tired from sz, no cp, soa, diarrhea Assessment and Plan Assessmemt and Plan Problems Medical Problems: (1) Altered mental status Status: Acute (2) Seizure Status: Acute (3) Seizure-like activity Status: Acute Problems: Comment Review of Relevant I have reviewed the following items marly (where applicable) has been applied. Labs Laboratory Tests Test 07/28/17 15:04 07/28/17 16:00 07/28/17 17:50 07/28/17 20:27 Glucose (Fingerstick) 226 mg/dL (70-99) 243 mg/dL (70-99) Nasal Screen MRSA (PCR) Negative (Negative) Lactic Acid Level 0.8 mmol/L (0.4-2.0) Test 07/29/17 03:14 07/29/17 07:32 07/29/17 09:30 07/29/17 10:54 Glucose (Fingerstick) 232 mg/dL (70-99) 198 mg/dL (70-99) 297 mg/dL (70-99) Phenytoin (Dilantin) Level 8.5 mcg/mL (10.0-20.0) Phenytoin Last Dose Date 07/29/17 Phenytoin Last Dose Time 0747 Test 07/29/17 16:39 07/29/17 20:16 07/30/17 04:20 07/30/17 07:19 Glucose (Fingerstick) 220 mg/dL (70-99) 258 mg/dL (70-99) 191 mg/dL (70-99) Phenytoin (Dilantin) Level 7.1 mcg/mL (10.0-20.0) Phenytoin Last Dose Date 07/29/17 Phenytoin Last Dose Time 2100 Test 07/30/17 11:16 Glucose (Fingerstick) 288 mg/dL (70-99) Laboratory Tests Test 07/29/17 16:39 07/29/17 20:16 07/30/17 04:20 07/30/17 07:19 Glucose (Fingerstick) 220 mg/dL (70-99) 258 mg/dL (70-99) 191 mg/dL (70-99) Phenytoin (Dilantin) Level 7.1 mcg/mL (10.0-20.0) Phenytoin Last Dose Date 07/29/17 Phenytoin Last Dose Time 2100 Test 07/30/17 11:16 Glucose (Fingerstick) 288 mg/dL (70-99) Medications Current Medications Lorazepam (Ativan) 2 mg 1X ONCE IV Last administered on 07/28/17t 10:32; Start 07/28/17 at 10:30; Stop 07/28/17 at 10:37; Status DC Lorazepam (Ativan) 2 mg PRN Q4HRS PRN IV ANXIETY / AGITATION Last administered on 07/30/17 07:01; Start 07/28/17 at 10:30 Sodium Chloride 1,000 ml @ 1,000 mls/hr 1X ONCE IV Last administered on 07/28 11:55; Start 07/28/17 at 11:30; Stop 07/28/17 at 12:29; Status DC Fosphenytoin Sodium 1000 mg/ Sodium Chloride 70 ml @ 280 mls/hr 1X ONCE IV Last administered on 07/28/17 11:59; Start 07/28/17 at 11:30; Stop 07/28/17 at 11:44; Status DC Aspirin (Domonique Aspirin) 325 mg DAILYWBKFT PO Last administered on 07/30/17 08 :33; Start 07/28/17 at 16:00 Atorvastatin Calcium (Lipitor) 20 mg QHS PO Last administered on 07/29/17 21: 21; Start 07/28/17 at 21:00 Gadobutrol (Gadavist) 7.5 mmol 1X ONCE IV Last administered on 07/28/17 16: 45; Start 07/28/17 at 16:45; Stop 07/28/17 at 16:46; Status DC Lisinopril (Prinivil) 20 mg DAILY PO Last administered on 07/30/17 08:34; Start 07/29/17 at 09:00 Metformin HCl (Glucophage) 1,000 mg BIDWMEALS PO Last administered on 08:33; Start 07/28/17 at 17:00 Phenytoin Sodium (Dilantin) 100 mg TID PO Last administered on 07/29/17 09:36 ; Start 07/28/17 at 21:00; Stop 07/29/17 at 09:52; Status DC Hydroxyzine Pamoate (Vistaril) 50 mg DAILY PO Last administered on 07/30/17 08:33; Start 07/29/17 at 09:00 Risperidone (RisperDAL) 0.5 mg QHS PO Last administered on 07/29/17 21:21; Start 07/28/17 at 21:00 Insulin Aspart (NovoLOG) 0-7 UNITS TIDWMEALS SQ Last administered on 17:48; Start 07/28/17 at 17:00; Stop 07/28/17 at 22:58; Status DC Dextrose (Dextrose 50%-Water Syringe) 12.5 gm PRN Q15MIN PRN IV SEE COMMENTS; Start 07/28/17 at 17:00; Status Cancel Oxycodone/ Acetaminophen (Percocet 5/325) 1 tab PRN Q6HRS PRN PO PAIN Last administered on 07/29/17 21:33; Start 07/28/17 at 21:00 Amlodipine Besylate (Norvasc) 5 mg DAILY PO Last administered on 07/30/17 08: 34; Start 07/28/17 at 21:00 Insulin Aspart (NovoLOG) 0-7 UNITS QIDACHS SQ Last administered on 07/28/17 23:07; Start 07/28/17 at 23:00; Stop 07/29/17 at 07:50; Status DC Insulin Aspart (NovoLOG) 0-9 UNITS TIDWMEALS SQ Last administered on 12:05; Start 07/29/17 at 08:00 Dextrose (Dextrose 50%-Water Syringe) 12.5 gm PRN Q15MIN PRN IV SEE COMMENTS; Start 07/29/17 at 08:00 Acetaminophen (Tylenol) 500 mg PRN Q6HRS PRN PO MILD PAIN / TEMP; Start at 08:00 Ondansetron HCl (Zofran) 4 mg PRN Q6HRS PRN IV NAUSEA/VOMITING; Start at 08:00 Phenytoin Sodium (Dilantin) 300 mg QHS PO Last administered on 07/29/17 21:21 ; Start 07/29/17 at 21:00; Stop 07/30/17 at 08:51; Status DC Gabapentin (Neurontin) 100 mg TID PO Last administered on 07/30/17 14:06; Start 07/29/17 at 11:30 Lorazepam (Ativan) 2 mg STK-MED ONCE .ROUTE ; Start 07/28/17 at 10:27; Stop at 12:21; Status DC Info (Do NOT chart on this placeholder) 1 each 1X ONCE MC ; Start 07/29/17 at 17:00; Stop 07/29/17 at 17:01; Status UNV Pneumococcal Polyvalent Vaccine (Do NOT chart on this placeholder) 1 each 1X ONCE MC ; Start 07/29/17 at 17:00; Stop 07/29/17 at 17:01; Status UNV Influenza Virus Vaccine Quadrival (Fluarix Quad [id number] Syringe) 0.5 ml ONCE ONCE VAX IM ; Start 07/30/17 at 09:00; Stop 07/30/17 at 09:01; Status DC Pneumococcal Polyvalent Vaccine (Pneumovax 23) 0.5 ml ONCE ONCE VAX IM ; Start 07/30/17 at 09:00; Stop 07/30/17 at 09:01; Status DC Phenytoin Sodium (Dilantin) 400 mg QHS PO ; Start 07/30/17 at 21:00 Fosphenytoin Sodium 500 mg/ Sodium Chloride 60 ml @ 240 mls/hr 1X ONCE IV Last administered on 07/30/17t 09:26; Start 07/30/17 at 09:00; Stop 07/30/17 at 09:14; Status DC Active Scripts Active Reported Novolin N (Nph, Human Insulin Isophane) 100 Unit/1 Ml Vial 1 Unit SQ Risperidone 0.5 Mg Tablet 1 Tab PO QHS Metformin Hcl 1,000 Mg Tablet 1,000 Mg PO BIDWMEALS Dilantin (Phenytoin Sodium Extended) 100 Mg Capsule 100 Mg PO TID Vistaril (Hydroxyzine Pamoate) 50 Mg Capsule 1 Cap PO DAILY Humulin R (Insulin Regular, Human) 100 Unit/1 Ml Vial 100 Unit IJ Vistaril (Hydroxyzine Pamoate) 50 Mg Capsule 1 Cap PO TID Lisinopril 20 Mg Tablet 1 Tab PO DAILY Vitals/I & O Vital Sign - Last 24 Hours 07/29/17 07/29/17 07/29/17 07/29/17 15:00 19:00 20:00 21:33 Temp 98.1 98.2 98.1 98.2 Pulse 72 74 Resp 18 18 B/P (MAP) 134/80 (98) 147/98 (114) Pulse Ox 98 97 98 O2 Delivery Room Air Room Air Room Air Room Air 07/29/17 07/29/17 07/30/17 07/30/17 22:33 23:00 03:00 07:00 Temp 97.4 96.6 97.3 97.4 96.6 97.3 Pulse 87 60 82 Resp 18 18 20 B/P (MAP) 149/85 (106) 141/80 (100) 122/75 (91) Pulse Ox 98 97 98 97 O2 Delivery Room Air Room Air Room Air Room Air 07/30/17 07/30/17 07/30/17 07/30/17 07:04 07:45 08:34 08:34 Pulse 86 86 86 B/P (MAP) 133/71 (91) 133/71 133/71 Pulse Ox 98 O2 Delivery Room Air Room Air 07/30/17 10:53 Temp 98.1 98.1 Pulse 85 Resp 20 B/P (MAP) 119/73 (88) Pulse Ox 94 O2 Delivery Room Air Intake and Output 07/29/17 07/29/17 07/30/17 15:00 23:00 07:00 Intake Total 180 ml 540 ml Output Total 300 ml 700 ml Balance 180 ml -300 ml -160 ml ESE HAYES MD Jul 30, 2017 14:14
[2017-07-30] MEDS: ATORVASTATIN CALCIUM 20 MG TABLET PO SCH (20:44)
[2017-07-30] MEDS: risperiDONE 0.25 MG TABLET. PO SCH (20:44)
[2017-07-30] MEDS: oxyCODONE/APAP 5/325 1 TAB TABLET PO PRN (20:44)
[2017-07-30] MEDS ORDERED: PHENYTOIN SODIUM EXTENDED 100 MG CAPSULE PO SCH (21:00)
[2017-07-31 03:00] VITALS: BP 124/75
[2017-07-31 07:00] VITALS: BP 122/78
[2017-07-31] MEDS: hydrOXYzine PAMOATE 25 MG CAPSULE PO SCH (08:34)
[2017-07-31] MEDS: amLODIPine BESYLATE 5 MG TABLET PO SCH (08:35)
[2017-07-31] MEDS: GABAPENTIN 100 MG CAPSULE. PO SCH ×2 (08:35→14:54)
[2017-07-31] MEDS: LISINOPRIL 20 MG TABLET PO SCH (08:36)
[2017-07-31] MEDS: ASPIRIN 325 MG TABLET PO SCH (08:36)
[2017-07-31] MEDS: INSULIN ASPART 300 UNITS/3 ML INSULN.PEN SQ SCH ×3 (08:51→17:00)
[2017-07-31 11:00] VITALS: BP 143/90
--- NOTE | 2017-07-31 11:29 | PDOC ---
PROGRESS NOTES Assessment Problems Medical Problems: (1) Altered mental status Status: Acute (2) Seizure Status: Acute (3) Seizure-like activity Status: Acute Epilepsy: No further seizures, is now on 400 mg HS of phenytoin History of stroke with left hemiparesis Right leg weakness probably musculoskeletal, I do not believe that he is feigning this. Plan Continue phenytoin 400 mg HS, Okay for [facility] back to [facility] Hold off on repeating his EEG or adding a 2nd anticonvulsant, unless he continues to have breakthrough seizures with therapeutic level. I requested nurse to forward a request for a repeat phenytoin level in one week. Follow-up with neurology as needed. Subjective No complaints Objective Vital Signs Date Time Temp Pulse Resp B/P (MAP) Pulse Ox O2 Delivery O2 Flow Rate FiO2 07/31/17 08:36 69 131/79 07/31/17 08:00 Room Air 07/31/17 07:00 99.3 18 93 99.3 Intake and Output 07/31/17 07:00 Intake Total 960 ml Balance 960 ml Intake Oral 960 ml # Voids 2 PHYSICAL EXAM Alert. Oriented only to person. PERRL. EOMI. CN: Mild left central facial weakness, otherwise normal cranial nerves. Muscle tone: normal. Muscle strength: 4/5 left hemiparesis, Now he does not move the right leg. He tells me that the right leg has been leaked years. I believe he did move for me yesterday but he was sedated and the main problem with the right leg is hip pain , so he may be splinting DTR: 2+ Plantar reflex: flexor Gait: not examined in bed. Sensory exam: no abnormal findings. No cerebellar signs elicited. Review of Relevant I have reviewed the following items marly (where applicable) has been applied. Labs Laboratory Tests Test 07/29/17 16:39 07/29/17 20:16 07/30/17 04:20 07/30/17 07:19 Glucose (Fingerstick) 220 mg/dL (70-99) 258 mg/dL (70-99) 191 mg/dL (70-99) Phenytoin (Dilantin) Level 7.1 mcg/mL (10.0-20.0) Phenytoin Last Dose Date 07/29/17 Phenytoin Last Dose Time 2100 Test 07/30/17 11:16 07/30/17 14:48 07/30/17 20:36 07/31/17 08:12 Glucose (Fingerstick) 288 mg/dL (70-99) 197 mg/dL (70-99) 187 mg/dL (70-99) 292 mg/dL (70-99) Test 07/31/17 10:23 Glucose (Fingerstick) 298 mg/dL (70-99) Laboratory Tests Test 07/30/17 14:48 07/30/17 20:36 07/31/17 08:12 07/31/17 10:23 Glucose (Fingerstick) 197 mg/dL (70-99) 187 mg/dL (70-99) 292 mg/dL (70-99) 298 mg/dL (70-99) Medications Current Medications Lorazepam (Ativan) 2 mg 1X ONCE IV Last administered on 07/28/17 10:32; Start 07/28/17 at 10:30; Stop 07/28/17 at 10:37; Status DC Lorazepam (Ativan) 2 mg PRN Q4HRS PRN IV ANXIETY / AGITATION Last administered on 07/30/17 07:01; Start 07/28/17 at 10:30 Sodium Chloride 1,000 ml @ 1,000 mls/hr 1X ONCE IV Last administered on 07/28 11:55; Start 07/28/17 at 11:30; Stop 07/28/17 at 12:29; Status DC Fosphenytoin Sodium 1000 mg/ Sodium Chloride 70 ml @ 280 mls/hr 1X ONCE IV Last administered on 07/28/17 11:59; Start 07/28/17 at 11:30; Stop 07/28/17 at 11:44; Status DC Aspirin (Domoniqeu Aspirin) 325 mg DAILYWBKFT PO Last administered on 07/31/17 08 :36; Start 07/28/17 at 16:00 Atorvastatin Calcium (Lipitor) 20 mg QHS PO Last administered on 07/30/17 20: 44; Start 07/28/17 at 21:00 Gadobutrol (Gadavist) 7.5 mmol 1X ONCE IV Last administered on 07/28/17 16: 45; Start 07/28/17 at 16:45; Stop 07/28/17 at 16:46; Status DC Lisinopril (Prinivil) 20 mg DAILY PO Last administered on 07/31/17 08:36; Start 07/29/17 at 09:00 Metformin HCl (Glucophage) 1,000 mg BIDWMEALS PO Last administered on 08:35; Start 07/28/17 at 17:00 Phenytoin Sodium (Dilantin) 100 mg TID PO Last administered on 07/29/17 09:36 ; Start 07/28/17 at 21:00; Stop 07/29/17 at 09:52; Status DC Hydroxyzine Pamoate (Vistaril) 50 mg DAILY PO Last administered on 07/31/17 08:34; Start 07/29/17 at 09:00 Risperidone (RisperDAL) 0.5 mg QHS PO Last administered on 07/30/17 20:44; Start 07/28/17 at 21:00 Insulin Aspart (NovoLOG) 0-7 UNITS TIDWMEALS SQ Last administered on 17:48; Start 07/28/17 at 17:00; Stop 07/28/17 at 22:58; Status DC Dextrose (Dextrose 50%-Water Syringe) 12.5 gm PRN Q15MIN PRN IV SEE COMMENTS; Start 07/28/17 at 17:00; Status Cancel Oxycodone/ Acetaminophen (Percocet 5/325) 1 tab PRN Q6HRS PRN PO PAIN Last administered on 07/30/17 20:44; Start 07/28/17 at 21:00 Amlodipine Besylate (Norvasc) 5 mg DAILY PO Last administered on 07/31/17 08: 35; Start 07/28/17 at 21:00 Insulin Aspart (NovoLOG) 0-7 UNITS QIDACHS SQ Last administered on 07/28/17 23:07; Start 07/28/17 at 23:00; Stop 07/29/17 at 07:50; Status DC Insulin Aspart (NovoLOG) 0-9 UNITS TIDWMEALS SQ Last administered on 08:51; Start 07/29/17 at 08:00 Dextrose (Dextrose 50%-Water Syringe) 12.5 gm PRN Q15MIN PRN IV SEE COMMENTS; Start 07/29/17 at 08:00 Acetaminophen (Tylenol) 500 mg PRN Q6HRS PRN PO MILD PAIN / TEMP; Start at 08:00 Ondansetron HCl (Zofran) 4 mg PRN Q6HRS PRN IV NAUSEA/VOMITING; Start at 08:00 Phenytoin Sodium (Dilantin) 300 mg QHS PO Last administered on 07/29/17 21:21 ; Start 07/29/17 at 21:00; Stop 07/30/17 at 08:51; Status DC Gabapentin (Neurontin) 100 mg TID PO Last administered on 07/31/17 08:35; Start 07/29/17 at 11:30 Lorazepam (Ativan) 2 mg STK-MED ONCE .ROUTE ; Start 07/28/17 at 10:27; Stop at 12:21; Status DC Info (Do NOT chart on this placeholder) 1 each 1X ONCE MC ; Start 07/29/17 at 17:00; Stop 07/29/17 at 17:01; Status UNV Pneumococcal Polyvalent Vaccine (Do NOT chart on this placeholder) 1 each 1X ONCE MC ; Start 07/29/17 at 17:00; Stop 07/29/17 at 17:01; Status UNV Influenza Virus Vaccine Quadrival (Fluarix Quad [id number] Syringe) 0.5 ml ONCE ONCE VAX IM ; Start 07/30/17 at 09:00; Stop 07/30/17 at 09:01; Status DC Pneumococcal Polyvalent Vaccine (Pneumovax 23) 0.5 ml ONCE ONCE VAX IM ; Start 07/30/17 at 09:00; Stop 07/30/17 at 09:01; Status DC Phenytoin Sodium (Dilantin) 400 mg QHS PO Last administered on 07/30/17 20:44 ; Start 07/30/17 at 21:00 Fosphenytoin Sodium 500 mg/ Sodium Chloride 60 ml @ 240 mls/hr 1X ONCE IV Last administered on 07/30/17 09:26; Start 07/30/17 at 09:00; Stop 07/30/17 at 09:14; Status DC Insulin Detemir (Levemir) 10 units QHS SQ ; Start 07/31/17 at 21:00 Active Scripts Active Reported Novolin N (Nph, Human Insulin Isophane) 100 Unit/1 Ml Vial 1 Unit SQ Risperidone 0.5 Mg Tablet 1 Tab PO QHS Metformin Hcl 1,000 Mg Tablet 1,000 Mg PO BIDWMEALS Dilantin (Phenytoin Sodium Extended) 100 Mg Capsule 100 Mg PO TID Vistaril (Hydroxyzine Pamoate) 50 Mg Capsule 1 Cap PO DAILY Humulin R (Insulin Regular, Human) 100 Unit/1 Ml Vial 100 Unit IJ Vistaril (Hydroxyzine Pamoate) 50 Mg Capsule 1 Cap PO TID Lisinopril 20 Mg Tablet 1 Tab PO DAILY Vitals/I & O Vital Sign - Last 24 Hours 07/30/17 07/30/17 07/30/17 07/30/17 15:16 19:00 19:10 20:44 Temp 97.9 98.6 97.9 98.6 Pulse 80 86 Resp 20 20 16 B/P (MAP) 133/74 (93) 135/77 (96) Pulse Ox 94 96 94 O2 Delivery Room Air Room Air Room Air Room Air 07/30/17 07/30/17 07/31/17 07/31/17 21:43 23:00 03:00 07:00 Temp 98.6 97.9 99.3 98.6 97.9 99.3 Pulse 79 74 94 Resp 16 20 20 18 B/P (MAP) 121/76 (91) 124/75 (91) 122/78 (93) Pulse Ox 94 97 98 93 O2 Delivery Room Air Room Air Room Air Room Air 07/31/17 07/31/17 07/31/17 08:00 08:35 08:36 Pulse 69 69 B/P (MAP) 131/79 131/79 O2 Delivery Room Air Intake and Output 07/30/17 07/30/17 07/31/17 15:00 23:00 07:00 Intake Total 480 ml 480 ml Balance 480 ml 480 ml TWAN WILEY MD Jul 31, 2017 11:29
[2017-07-31] MEDS ORDERED: PHEN300C4 PO (13:19)
--- NOTE | 2017-07-31 13:22 | PDOC3 ---
Discharge Summary Visit Information Date of Admission: Jul 28, 2017 Date of Discharge: Jul 31, 2017 Admitting Diagnosis Comment: 1. NO acute CVA this admit 2. Hx CVA with left residual numbness 3. IN mate 4. Dyslipidmeia 5. Hz SZ with subtherapeuitc levels dilantin 6. DM 2 7. Left arm numbness, conversion d.o Final Diagnosis Problems Medical Problems: (1) Altered mental status Status: Acute (2) Seizure Status: Acute (3) Seizure-like activity Status: Acute Brief Hospital Course Allergies Allergies Coded Allergies Type Severity Reaction Last Updated Verified Penicillins Allergy Intermediate 07/28/17 Yes Vital Signs Vital Signs Date Time Temp Pulse Resp B/P (MAP) Pulse Ox O2 Delivery O2 Flow Rate FiO2 07/31/17 11:00 99.3 81 16 143/90 (107) 98 Room Air 99.3 Lab Results Laboratory Tests Test 07/29/17 16:39 07/29/17 20:16 07/30/17 04:20 07/30/17 07:19 Glucose (Fingerstick) 220 mg/dL (70-99) 258 mg/dL (70-99) 191 mg/dL (70-99) Phenytoin (Dilantin) Level 7.1 mcg/mL (10.0-20.0) Phenytoin Last Dose Date 07/29/17 Phenytoin Last Dose Time 2100 Test 07/30/17 11:16 07/30/17 14:48 07/30/17 20:36 07/31/17 08:12 Glucose (Fingerstick) 288 mg/dL (70-99) 197 mg/dL (70-99) 187 mg/dL (70-99) 292 mg/dL (70-99) Test 07/31/17 10:23 Glucose (Fingerstick) 298 mg/dL (70-99) Laboratory Tests Test 07/30/17 14:48 07/30/17 20:36 07/31/17 08:12 07/31/17 10:23 Glucose (Fingerstick) 197 mg/dL (70-99) 187 mg/dL (70-99) 292 mg/dL (70-99) 298 mg/dL (70-99) Brief Hospital Course Mr. Fletcher is a 51 old AA male, inmate admitted for SZ, known hx SZ with hx CVA. Low levels of dilantin on dilantin at home, HAd some SZ while here, Dilantin dose upd to 400 PO qhs from 100 TID, To rpt dilantin levels in 1 week per neuro, CVA work up this admit was neg, Complaining of left arm numbness which we believe he is feigning it to prolong his stay here Seen and examined, MAR done Discharge Information Condition at Discharge: Improved, Stable Disposition/Orders: Other ([facility]) Scheduled Hydroxyzine Pamoate (Vistaril), 1 CAP PO TID, (Reported) Hydroxyzine Pamoate (Vistaril), 1 CAP PO DAILY, (Reported) Lisinopril (Lisinopril), 1 TAB PO DAILY, (Reported) Metformin Hcl (Metformin Hcl), 1,000 MG PO BIDWMEALS, (Reported) Phenytoin Sodium Extended (Dilantin), 100 MG PO TID, (Reported) Risperidone (Risperidone), 1 TAB PO QHS, (Reported) Miscellaneous Medications Insulin Regular, Human (Humulin R), 100 UNIT IJ, (Reported) Nph, Human Insulin Isophane (Novolin N), 1 UNIT SQ, (Reported) ESE HAYES MD Jul 31, 2017 13:22
--- NOTE | 2017-07-31 16:01 | PDOC ---
PROGRESS NOTES Subjective Subjective No new complaints. Objective Objective Vital Signs Date Time Temp Pulse Resp B/P (MAP) Pulse Ox O2 Delivery O2 Flow Rate FiO2 07/31/17 11:00 99.3 81 16 143/90 (107) 98 Room Air 99.3 Intake and Output 07/31/17 07:00 Intake Total 960 ml Balance 960 ml Intake Oral 960 ml # Voids 2 Physical Exam Physical Exam He is alert and comfortable and no change noted with his lower extremity weakness and he is moving both upper extremities actively. Assessment Assessment Problems Medical Problems: (1) Altered mental status Status: Acute (2) Seizure Status: Acute (3) Seizure-like activity Status: Acute Plan Plan of Care To the [facility] when medically stable. Comment Review of Relevant I have reviewed the following items marly (where applicable) has been applied. Labs Laboratory Tests Test 07/29/17 16:39 07/29/17 20:16 07/30/17 04:20 07/30/17 07:19 Glucose (Fingerstick) 220 mg/dL (70-99) 258 mg/dL (70-99) 191 mg/dL (70-99) Phenytoin (Dilantin) Level 7.1 mcg/mL (10.0-20.0) Phenytoin Last Dose Date 07/29/17 Phenytoin Last Dose Time 2100 Test 07/30/17 11:16 07/30/17 14:48 07/30/17 20:36 07/31/17 08:12 Glucose (Fingerstick) 288 mg/dL (70-99) 197 mg/dL (70-99) 187 mg/dL (70-99) 292 mg/dL (70-99) Test 07/31/17 10:23 Glucose (Fingerstick) 298 mg/dL (70-99) Laboratory Tests Test 07/30/17 20:36 07/31/17 08:12 07/31/17 10:23 Glucose (Fingerstick) 187 mg/dL (70-99) 292 mg/dL (70-99) 298 mg/dL (70-99) Medications Current Medications Lorazepam (Ativan) 2 mg 1X ONCE IV Last administered on 07/28/17t 10:32; Start 07/28/17 at 10:30; Stop 07/28/17 at 10:37; Status DC Lorazepam (Ativan) 2 mg PRN Q4HRS PRN IV ANXIETY / AGITATION Last administered on 07/30/17 07:01; Start 07/28/17 at 10:30 Sodium Chloride 1,000 ml @ 1,000 mls/hr 1X ONCE IV Last administered on 07/28 11:55; Start 07/28/17 at 11:30; Stop 07/28/17 at 12:29; Status DC Fosphenytoin Sodium 1000 mg/ Sodium Chloride 70 ml @ 280 mls/hr 1X ONCE IV Last administered on 07/28/17 11:59; Start 07/28/17 at 11:30; Stop 07/28/17 at 11:44; Status DC Aspirin (Domonique Aspirin) 325 mg [id number] PO Last administered on 07/31/17 08 :36; Start 07/28/17 at 16:00 Atorvastatin Calcium (Lipitor) 20 mg QHS PO Last administered on 07/30/17 20: 44; Start 07/28/17 at 21:00 Gadobutrol (Gadavist) 7.5 mmol 1X ONCE IV Last administered on 07/28/17 16: 45; Start 07/28/17 at 16:45; Stop 07/28/17 at 16:46; Status DC Lisinopril (Prinivil) 20 mg DAILY PO Last administered on 07/31/17 08:36; Start 07/29/17 at 09:00 Metformin HCl (Glucophage) 1,000 mg BIDWMEALS PO Last administered on 08:35; Start 07/28/17 at 17:00 Phenytoin Sodium (Dilantin) 100 mg TID PO Last administered on 07/29/17 09:36 ; Start 07/28/17 at 21:00; Stop 07/29/17 at 09:52; Status DC Hydroxyzine Pamoate (Vistaril) 50 mg DAILY PO Last administered on 07/31/17 08:34; Start 07/29/17 at 09:00 Risperidone (RisperDAL) 0.5 mg QHS PO Last administered on 07/30/17 20:44; Start 07/28/17 at 21:00 Insulin Aspart (NovoLOG) 0-7 UNITS TIDWMEALS SQ Last administered on 17:48; Start 07/28/17 at 17:00; Stop 07/28/17 at 22:58; Status DC Dextrose (Dextrose 50%-Water Syringe) 12.5 gm PRN Q15MIN PRN IV SEE COMMENTS; Start 07/28/17 at 17:00; Status Cancel Oxycodone/ Acetaminophen (Percocet 5/325) 1 tab PRN Q6HRS PRN PO PAIN Last administered on 07/30/17 20:44; Start 07/28/17 at 21:00 Amlodipine Besylate (Norvasc) 5 mg DAILY PO Last administered on 07/31/17 08: 35; Start 07/28/17 at 21:00 Insulin Aspart (NovoLOG) 0-7 UNITS QIDACHS SQ Last administered on 07/28/17 23:07; Start 07/28/17 at 23:00; Stop 07/29/17 at 07:50; Status DC Insulin Aspart (NovoLOG) 0-9 UNITS TIDWMEALS SQ Last administered on 12:31; Start 07/29/17 at 08:00 Dextrose (Dextrose 50%-Water Syringe) 12.5 gm PRN Q15MIN PRN IV SEE COMMENTS; Start 07/29/17 at 08:00 Acetaminophen (Tylenol) 500 mg PRN Q6HRS PRN PO MILD PAIN / TEMP; Start at 08:00 Ondansetron HCl (Zofran) 4 mg PRN Q6HRS PRN IV NAUSEA/VOMITING; Start at 08:00 Phenytoin Sodium (Dilantin) 300 mg QHS PO Last administered on 07/29/17 21:21 ; Start 07/29/17 at 21:00; Stop 07/30/17 at 08:51; Status DC Gabapentin (Neurontin) 100 mg TID PO Last administered on 07/31/17 14:54; Start 07/29/17 at 11:30 Lorazepam (Ativan) 2 mg STK-MED ONCE .ROUTE ; Start 07/28/17 at 10:27; Stop at 12:21; Status DC Info (Do NOT chart on this placeholder) 1 each 1X ONCE MC ; Start 07/29/17 at 17:00; Stop 07/29/17 at 17:01; Status UNV Pneumococcal Polyvalent Vaccine (Do NOT chart on this placeholder) 1 each 1X ONCE MC ; Start 07/29/17 at 17:00; Stop 07/29/17 at 17:01; Status UNV Influenza Virus Vaccine Quadrival (Fluarix Quad [id number] Syringe) 0.5 ml ONCE ONCE VAX IM Last administered on 07/31/17 14:54; Start 07/30/17 at 09:00; Stop 07/30/17 at 09:01; Status DC Pneumococcal Polyvalent Vaccine (Pneumovax 23) 0.5 ml ONCE ONCE VAX IM ; Start 07/30/17 at 09:00; Stop 07/30/17 at 09:01; Status DC Phenytoin Sodium (Dilantin) 400 mg QHS PO Last administered on 07/30/17 20:44 ; Start 07/30/17 at 21:00 Fosphenytoin Sodium 500 mg/ Sodium Chloride 60 ml @ 240 mls/hr 1X ONCE IV Last administered on 07/30/17 09:26; Start 07/30/17 at 09:00; Stop 07/30/17 at 09:14; Status DC Insulin Detemir (Levemir) 10 units QHS SQ ; Start 07/31/17 at 21:00 Active Scripts Active Phenytoin Sodium Extended 300 Mg Capsule 400 Mg PO QHS 30 Days Reported Novolin N (Nph, Human Insulin Isophane) 100 Unit/1 Ml Vial 1 Unit SQ Risperidone 0.5 Mg Tablet 1 Tab PO QHS Metformin Hcl 1,000 Mg Tablet 1,000 Mg PO BIDWMEALS Vistaril (Hydroxyzine Pamoate) 50 Mg Capsule 1 Cap PO DAILY Humulin R (Insulin Regular, Human) 100 Unit/1 Ml Vial 100 Unit IJ Vistaril (Hydroxyzine Pamoate) 50 Mg Capsule 1 Cap PO TID Lisinopril 20 Mg Tablet 1 Tab PO DAILY Vitals/I & O Vital Sign - Last 24 Hours 07/30/17 07/30/17 07/30/17 07/30/17 19:00 19:10 20:44 21:43 Temp 98.6 98.6 Pulse 86 Resp 20 16 16 B/P (MAP) 135/77 (96) Pulse Ox 96 94 94 O2 Delivery Room Air Room Air Room Air Room Air 07/30/17 07/31/17 07/31/17 07/31/17 23:00 03:00 07:00 08:00 Temp 98.6 97.9 99.3 98.6 97.9 99.3 Pulse 79 74 94 Resp 20 20 18 B/P (MAP) 121/76 (91) 124/75 (91) 122/78 (93) Pulse Ox 97 98 93 O2 Delivery Room Air Room Air Room Air Room Air 07/31/17 07/31/17 07/31/17 08:35 08:36 11:00 Temp 99.3 99.3 Pulse 69 69 81 Resp 16 B/P (MAP) 131/79 131/79 143/90 (107) Pulse Ox 98 O2 Delivery Room Air Intake and Output 07/30/17 07/30/17 07/31/17 15:00 23:00 07:00 Intake Total 480 ml 480 ml Balance 480 ml 480 ml MARIA D PLAZA MD Jul 31, 2017 16:01
[2017-07-31] MEDS ORDERED: INSULIN DETEMIR 300 UNITS/3 ML INSULN.PEN. SQ SCH (21:00)
== END 2017-07-31 17:00 | disposition home or self-care (01) | DRG 100 ==
LOC: EEVIPCON 10:19 → ER 10:19 → 5 NORTH 13:12
PROVIDERS: ADMIT Internal Medicine; ATTEND Internal Medicine
DX: G40.909 Epilepsy, unspecified, not intractable, without status epilepticus (principal); G93.40 Encephalopathy, unspecified; E11.51 Type 2 diabetes mellitus with diabetic peripheral angiopathy without gangrene; I69.354 Hemiplegia and hemiparesis following cerebral infarction affecting left non-dominant side; I10 Essential (primary) hypertension; R41.82 Altered mental status, unspecified; E78.5 Hyperlipidemia, unspecified; Z83.3 Family history of diabetes mellitus; Z88.0 Allergy status to penicillin; Z79.899 Other long term (current) drug therapy; Z23 Encounter for immunization
CPT/HCPCS: 99291; C8929; 36415; 70450; 70553; 80053; 80061; 80185; 80307; 82962; 83605; 85025; 87641; 90686; 93005; 93880; 96365; 96375; A9585; J1815; J2060; J7030; Q0177; Q2009; 97530; G0479

== ENCOUNTER → 2018-06-02 | Outpatient (CLI) | payer OTHER ==
[~2018-06-02] MED LIST: HYDR25CA PO; HYDR50CA PO; INSU100V5 IJ; LISI-334 PO; LISI2.5T PO; METF10007 PO; METF500T16 PO; NPH,100V5 SQ; PHEN100C PO; PHEN300C4 PO; RISP0.5T3 PO
--- NOTE | 2018-06-04 11:30 | EEG ---
DATE OF SERVICE: 06/02/2018 ATTENDING PHYSICIAN: Jethro Sierra at the [facility] EEG NUMBER: [id number] OBJECTIVE: The patient is a 52-year-old male with epilepsy. DESCRIPTION: This is a digital study. Electrodes are placed according to the international 10-20 system. Bipolar and referential montages are available. Activation procedures typically include hyperventilation and intermittent photic stimulation. INTERPRETATION: The waking background consists of 10-20 microvolt, 8-9 Hz activity symmetrically distributed over parietooccipital regions and reactive to eye opening. Much of the record is obscured by beta activity. Brief episodes of stage I sleep are achieved. Hyperventilation and intermittent photic stimulation are noncontributory. IMPRESSION: This electroencephalogram with the patient awake and asleep is within normal limits. There is no focal, paroxysmal, or epileptiform activity. This type of beta activity usually reflects poor relaxation or possibly medication effects. Thank you for letting us help with the patient's care. TWAN WILEY MD DR: CHUCK/jackelyn JOB#: [id number] / [id number] Lj Ayala M.D.
== END | disposition home or self-care (01) ==
LOC: EEVIPCON 09:00 → RT 09:09
DX: G40.909 Epilepsy, unspecified, not intractable, without status epilepticus (principal); I10 Essential (primary) hypertension; E11.9 Type 2 diabetes mellitus without complications; E78.5 Hyperlipidemia, unspecified; Z88.0 Allergy status to penicillin; Z83.3 Family history of diabetes mellitus
CPT/HCPCS: 95816